=== PATIENT | female | born 1935 | race Caucasian/White ===

== ENCOUNTER 2017-02-22 06:45 | Observation (INO) | payer MEDICARE, BC ==
[2017-02-22] VITALS (15 sets, daily range): BP systolic 89–121; BP diastolic 42–56; PULSE 59–81; RESP 14–58; TEMP 98.7–100; O2SAT 91–99
[~2017-02-22 06:45] MED LIST: ACET325 PO; ALBU2.5I INH; ALPR-138 PO; ALPR0.25 PO; ASPI81TA82 PO; BISA10R PR; BUME1TAB PO; CYCL-36 PO; Cyclobenzaprine Hcl PO; DOCU1CAP39 PO; ENOX40P SQ; HYDR-3535 PO; HYDR10SO PO; LEVO.025 PO; LOVA1TAB47 PO; MAGN30S PO; METO50CR PO; PROT40TA PO; SYNT25TA PO; TAB-TAB PO; ZOVI400T15 PO; [UNRECOGNIZED DRUG - CODE] IV
--- NOTE | 2017-02-22 07:05 | PD ---
HPI Chief Complaint: Respiratory Distress Time Seen by Provider: 07:05 Travel History International Travel<30 days: No Contact w/Intl Traveler<30days: No Traveled to known affect area: No History of Present Illness HPI 81-year-old female came to the emergency room with history of shortness of breath sent from the retirement. Patient has history of recent femur fracture but because of her DNR status and no surgery is planned. She is wearing a knee immobilizer on her left leg. As per the report from the paramedics patient received some narcotic and soon after started getting lethargic and short of breath. Her oxygen saturation was in the high 80s to low 90s on nasal cannula. However when I called her name patient open her eyes and answer my questions. She denies of any pain anywhere. However she does seem to be little lethargic and is not a reliable historian currently. History is limited at this point since not much information is sent from the retirement. Heart rate and blood pressure were within acceptable limits. [facility] Past Medical History Narrative Medical List of her past medical, surgical, social and family history was reviewed from the nursing note Arthritis: Yes Depression: Yes Cancer: No Cardiovascular Problems: No High Cholesterol: Yes Diabetes: No Diminished Hearing: No Endocrine: No Genitourinary: Yes (URINARY FREQUENCY ) Hepatitis: No Hiatal Hernia: No Hypertension: Yes Immune Disorder: No Musculoskeletal: Yes (ARTHRITIS BACK ) Neurologic: Yes (PAIN RIGHT LEG (INTERMITTENT)) Psychiatric: No Respiratory: No Shingles: Yes (HERPES SYNDROME) Thyroid Disease: No Menopausal: Yes Past Surgical History Abdominal Surgery: No AICD: No Body Medical Devices: HARDWARE RIGHT SHOULDER, ? RIGHT FOOT FROM BUNIONECTOMY Cardiac Surgery: No Genitourinary Surgery: No Gynecologic Surgery: No Joint Replacement: No Pacemaker: No Thoracic Surgery: No Social History Alcohol Use: Yes (WINE DAILY) Tobacco Use: No (QUIT 1996) Substance Use: No Allergies-Medications (Allergen,Severity, Reaction): Coded Allergies: No Known Allergies (Verified , 11/11/14) Comments List of her allergies reviewed from the nursing note. Reported Meds & Prescriptions Reported Meds & Active Scripts Active Reported Potassium Chloride ER (Potassium Chloride) 10 Meq Cap 10 Meq PO DAILY PRN Zofran (Ondansetron HCl) 4 Mg Tab 4 Mg PO Q8HR PRN [place] (Hydrocodone-Acetaminophen) 5-325 mg Tab 1-2 Tab PO Q6H PRN Bumetanide 1 Mg Tab 1 Mg PO DAILY PRN Melatonin Cr (Melatonin) 3 Mg Tab 3 Mg PO HS Eliquis (Apixaban) 5 Mg Tab 5 Mg PO BID Metoprolol Succinate ER 24 HR (Metoprolol Succinate) 25 Mg Tab 25 Mg PO DAILY Magnesium Gluconate 500 Mg Tab 500 Mg PO DAILY Lovastatin 20 Mg Tab 20 Mg PO DAILY Levothyroxine (Levothyroxine Sodium) 25 Mcg Tab 25 Mcg PO DAILY Escitalopram (Escitalopram Oxalate) 5 Mg Tab 5 Mg PO DAILY Narrative Medication List of her home medications reviewed from the nursing note. Review of Systems Except as stated in HPI: all other systems reviewed are Neg Physical Exam Narrative GENERAL: Lethargic, elderly, frail, moderate distress SKIN: Focused skin assessment warm/dry. HEAD: Atraumatic. Normocephalic. EYES: Pupils equal and round. No scleral icterus. No injection or drainage. ENT: No nasal bleeding or discharge. Mucous membranes pink and moist. NECK: Trachea midline. No JVD. CARDIOVASCULAR: Regular rate and rhythm. No murmur appreciated. RESPIRATORY: No accessory muscle use. Shallow respirations. Clear to auscultation. Breath sounds equal bilaterally. GASTROINTESTINAL: Abdomen soft, non-tender, nondistended. Hepatic and splenic margins not palpable. MUSCULOSKELETAL: Knee immobilizer on the left leg. No clubbing. No cyanosis. Bilateral pedal edema. NEUROLOGICAL: Awake and alert. No obvious cranial nerve deficits. Motor grossly within normal limits. Normal speech. PSYCHIATRIC: Appropriate mood and affect; insight and judgment normal. Data Data Last Documented VS Vital Signs Date Time Temp Pulse Resp B/P Pulse Ox O2 Delivery O2 Flow Rate FiO2 02/22/17 08:07 70 14 114/56 99 Venturi Mask 50 02/22/17 07:30 100.0 02/22/17 06:55 4 Orders Complete Blood Count With Diff (02/22/17 07:11) Comprehensive Metabolic Panel (02/22/17 07:11) Urinalysis - C+S If Indicated (02/22/17 07:11) Blood Culture (02/22/17 07:11) Iv Access Insert/Monitor (02/22/17 07:11) Electrocardiogram (02/22/17 07:11) Ecg Monitoring (02/22/17 07:11) Oximetry (02/22/17 07:11) Oxygen Administration (02/22/17 07:11) Chest, Single Ap (02/22/17 07:11) Sodium Chloride 0.9% Flush (Ns Flush) (02/22/17 07:15) Ceftriaxone Inj (Rocephin Inj) (02/22/17 08:45) Azithromycin Inj (Zithromax Inj) (02/22/17 08:45) Furosemide Inj (Lasix Inj) (02/22/17 08:45) Admit Order (Ed Use Only) (02/22/17 08:49) Labs Laboratory Tests Test 02/22/17 07:35 White Blood Count 6.0 TH/MM3 Red Blood Count 4.00 MIL/MM3 Hemoglobin 11.5 GM/DL Hematocrit 35.7 % Mean Corpuscular Volume 89.2 FL Mean Corpuscular Hemoglobin 28.7 PG Mean Corpuscular Hemoglobin 32.2 % Concent Red Cell Distribution Width 15.4 % Platelet Count 277 TH/MM3 Mean Platelet Volume 7.3 FL Neutrophils (%) (Auto) 67.8 % Lymphocytes (%) (Auto) 18.0 % Monocytes (%) (Auto) 12.7 % Eosinophils (%) (Auto) 0.9 % Basophils (%) (Auto) 0.6 % Neutrophils # (Auto) 4.0 TH/MM3 Lymphocytes # (Auto) 1.1 TH/MM3 Monocytes # (Auto) 0.8 TH/MM3 Eosinophils # (Auto) 0.1 TH/MM3 Basophils # (Auto) 0.0 TH/MM3 CBC Comment DIFF FINAL Differential Comment Sodium Level 137 MEQ/L Potassium Level 4.3 MEQ/L Chloride Level 93 MEQ/L Carbon Dioxide Level 37.7 MEQ/L Anion Gap 6 MEQ/L Blood Urea Nitrogen 16 MG/DL Creatinine 0.42 MG/DL Estimat Glomerular Filtration 144 ML/MIN Rate Random Glucose 98 MG/DL Calcium Level 8.7 MG/DL Total Bilirubin 0.7 MG/DL Aspartate Amino Transf 12 U/L (AST/SGOT) Alanine Aminotransferase 15 U/L (ALT/SGPT) Alkaline Phosphatase 167 U/L B-Type Natriuretic Peptide 269 PG/ML Total Protein 6.0 GM/DL Albumin 2.5 GM/DL MDM Medical Decision Making Medical Screen Exam Complete: Yes Emergency Medical Condition: Yes Medical Record Reviewed: Yes Interpretation(s) Twelve-lead EKG was reviewed by me. Atrial fibrillation, left axis deviation, poor R-wave progression. Heart rate of 68 bpm. Differential Diagnosis Pneumonia, congestive heart failure, PE, COPD exacerbation, sepsis Narrative Course 7:22 AM I have asked the nursing staff to get a rectal temperature. Patient is currently on oxygen via mask and saturating 97-98%. Awaiting for the x-ray and the blood test. Patient is a DNR and hence aggressive respiratory measures for instance intubation will not be performed. Awaiting for more information through the tests ordered. Patient is on Eliquis probably for her atrial fibrillation. 8:50 AM chest x-ray suggestive of bilateral pleural effusion with questionable pneumonia. Especially given her rectal temperature of 100 I have decided to cover her with antibiotic. She was given IV Rocephin and azithromycin. Her sister is here now and I had a discussion with her. I made her understand that currently I am not 100% sure what could be the reason for her hypoxia and respiratory distress. Could be a combination of narcotic and the fluid building up in the lungs. It could also be from underlying pneumonia for which I have covered her with antibiotics. I also gave her 40 mg of IV Lasix. Blood test results are back and appeared to be within acceptable limits. She thought it would be reasonable to give her a trial of antibiotic for 24 hours and see how her condition does. She explained that her sister definitely wanted her DNR status to be continued and hence no aggressive measures. I have conveyed this to the hospitalist. The patient is admitted. Procedures EKG Prior to Arrival: No Diagnosis Primary Impression: Hypoxia Additional Impressions: Respiratory distress Pneumonia Qualified Code: J18.9 - Pneumonia of both lower lobes due to infectious organism Altered mental status Qualified Code: R40.0 - Somnolence Admitting Information Admitting Physician Requests: Admit Scripts Alprazolam 0.5 Mg Tab0.5 Mg PO BID #6 TAB Ref 0 Prov:Roberto Mcmullen MD 02/23/17 Marina Light MD Feb 22, 2017 07:05
[2017-02-22] MEDS ORDERED: SODIUM CHLORIDE 0.9% FLUSH 10 ML FLUSH IVF PRN (07:15)
[2017-02-22 07:50] LABS: BASOPHIL % 0.6 % (0.0-2.0); EOSINOPHIL # 0.1 TH/MM3 (0-0.4); EOSINOPHIL % 0.9 % (0.0-4.0); HEMATOCRIT 35.7 % (35.0-46.0); HEMO FLAGS DIFF FINAL; LYMPHOCYTE # 1.1 TH/MM3 (1.0-4.8); MEAN CELL VOLUME 89.2 FL (80.0-100.0); MEAN CORPUSCULAR HEMOGLOBIN 28.7 PG (27.0-34.0); MEAN CORPUSCULAR HGB CONC 32.2 % (32.0-36.0); MONO % 12.7 % (0.0-8.0); NEUT % 67.8 % (16.0-70.0); PLATELET COUNT 277 TH/MM3 (150-450); RED CELL DISTRIBUTION WIDTH 15.4 % (11.6-17.2)
[2017-02-22 07:58] LABS: CHLORIDE 93 MEQ/L (98-107); POTASSIUM 4.3 MEQ/L (3.5-5.1); SODIUM (NA) 137 MEQ/L (136-145)
--- NOTE | 2017-02-22 08:01 | RADHPO ---
EXAM DATE/TIME: 02/22/2017 07:18 [place] COMPARISON: No previous studies available for comparison. INDICATIONS : Short of breath. MEDICAL HISTORY : Hypertension. Osteoarthritis. Arthritis. Sleep apnea. SURGICAL HISTORY : Right rotator cuff. Right bunionectomy. Cataract extraction & lens implant. ENCOUNTER: Initial ACUITY: 1 day PAIN SCORE: 0/10 LOCATION: chest FINDINGS: The heart is mildly enlarged. Bibasilar patchiness is noted consistent with pulmonary vascular conge stion, atelectasis and/or infiltrates. Small bilateral pleural effusions are noted. Degenerative ch anges are noted throughout the thoracic spine. CONCLUSION: 1. Bibasilar patchiness consistent with pulmonary vascular congestion, atelectasis and/or mild infil trates. 2. Small bilateral pleural effusions. 3. Cardiomegaly. 4. Degenerative changes and scoliosis of the thoracolumbar spine. Dajuan Bess MD on February 22, 2017 at 7:30 Board Certified Radiologist. This report was verified electronically.
[2017-02-22 08:02] LABS: ANION GAP 6 MEQ/L (5-15); BICARBONATE 37.7 MEQ/L (21.0-32.0); BLOOD UREA NITROGEN 16 MG/DL (7-18)
[2017-02-22] MEDS ORDERED: ESCI5TAB PO (08:04)
[2017-02-22] MEDS ORDERED: POTA10CA PO (08:04)
[2017-02-22] MEDS ORDERED: NORC5TAB PO (08:04)
[2017-02-22] MEDS ORDERED: APIX5TAB PO (08:04)
[2017-02-22] MEDS ORDERED: METO25TA6 PO (08:04)
[2017-02-22] MEDS ORDERED: MAGN500T5 PO (08:04)
[2017-02-22] MEDS ORDERED: ALPR0.5T3 PO (08:04)
[2017-02-22] MEDS ORDERED: LOVA20TA PO (08:04)
[2017-02-22] MEDS ORDERED: BUME1TAB PO (08:04)
[2017-02-22] MEDS ORDERED: ZOFR4TAB PO (08:04)
[2017-02-22] MEDS ORDERED: LEVO25TA4 PO (08:04)
[2017-02-22] MEDS ORDERED: MELA3TAB23 PO (08:04)
[2017-02-22 08:05] LABS: ALT (GPT) 15 U/L (10-53); AST (GOT) 12 U/L (15-37)
[2017-02-22 08:06] LABS: GLOMERULAR FILTRATION RATE 144 ML/MIN (>89)
[2017-02-22 08:07] LABS: TOTAL BILIRUBIN ADULT 0.7 MG/DL (0.2-1.0)
[2017-02-22 08:08] LABS: ALKALINE PHOSPHATASE 167 U/L (45-117)
[2017-02-22] MEDS ORDERED: FUROSEMIDE 40 MG/4 ML VIAL IV PUSH ONE (08:45)
[2017-02-22] MEDS ORDERED: cefTRIAXone INJ 1,000 MG in SODIUM CHLORIDE 0.9% INJ 100 ML IV ONE (08:45)
[2017-02-22] MEDS ORDERED: AZITHROMYCIN INJ 500 MG in SODIUM CHLOR 0.9% 250 ML INJ 250 ML IV ONE (08:45)
[2017-02-22] MEDS: METOPROLOL SUCCINATE 25 MG EXTENDED RELEASE TAB PO SCH (09:00)
[2017-02-22] MEDS ORDERED: RESP: ALBUTEROL 2.5 MG/IPRATROPIUM 0.5 MG NEB (PRN) INH (09:00)
[2017-02-22] MEDS ORDERED: ACETAMINOPHEN/HYDROcodone 325 MG/5 MG TAB PO PRN (09:00)
[2017-02-22] MEDS ORDERED: NALOXONE HCL 0.4 MG/ML AMP IV PUSH PRN (09:00)
[2017-02-22] MEDS ORDERED: ONDANSETRON HCL 4 MG/2 ML VIAL IV PRN (09:00)
[2017-02-22] MEDS ORDERED: ALUMINUM/MAGNESIUM/SIMETH 30 ML CUP PO PRN (09:00)
[2017-02-22] MEDS ORDERED: ACETAMINOPHEN 325 MG TAB PO PRN (09:00)
[2017-02-22] MEDS ORDERED: CALCIUM CARBONATE 500 MG CHEWABLE TAB CHEW PRN (09:00)
[2017-02-22] MEDS ORDERED: SODIUM CHLORIDE 0.9% FLUSH 10 ML FLUSH IV FLUSH PRN (09:00)
[2017-02-22] MEDS ORDERED: DOCUSATE SODIUM 100 MG CAP PO PRN (09:00)
[2017-02-22] MEDS ORDERED: ALPRAZolam 0.5 MG TAB PO PRN (09:00)
[2017-02-22] MEDS ORDERED: MAGNESIUM HYDROXIDE SUSP 30 ML CUP PO PRN (09:00)
[2017-02-22 09:07] LABS: BLOOD GAS BASE EXCESS 11.7 mmol/L (-2-2); BLOOD GAS CARBOXYHEMOGLOBIN 2.6 % (0-4); BLOOD GAS HCO3 39 mmol/L (22-26); BLOOD GAS METHEMOGLOBIN 1.1 % (0-2); BLOOD GAS O2 HGB SATURATION 95 % (90-100); BLOOD GAS OXYGEN CONTENT 14.4 Vol % (12.0-20.0); BLOOD GAS PCO2 86 mmHG (38-42); BLOOD GAS PO2 128 mmHG (61-120); BLOOD GAS TOTAL HGB 10.6 G/DL (12.0-16.0); TEMP CORR TO 98.6
[2017-02-22 09:08] LABS: CRITICAL VALUE YES
[2017-02-22 09:09] LABS: DRAW SITE RT RADIAL; FIO2 50 %; NUMBER OF ARTERIAL PUNCTURES 1; OXYGEN DEVICE Venti Mask; STAT NO; ULNAR PULSE PRESENT
[2017-02-22] MEDS: APIXABAN 5 MG TABLET PO SCH ×2 (10:51→21:35)
[2017-02-22] MEDS: LEVOTHYROXINE SODIUM 25 MCG TAB PO SCH (10:52)
[2017-02-22] MEDS: PRAVASTATIN SOD 20 MG TAB PO SCH (10:52)
[2017-02-22] MEDS: SODIUM CHLORIDE 0.9% FLUSH 10 ML FLUSH IV FLUSH SCH ×2 (10:53→21:35)
[2017-02-22] MEDS: PIPERACIL-TAZO 4.5 GM PREMIX 100 ML IV SCH ×2 (11:32→22:54)
[2017-02-22 13:46] LABS: BLOOD, URINE TRACE (NEG); GLUCOSE,URINE NEG (NEG); KETONE, URINE NEG (NEG); NITRITE,URINE NEG (NEG)
[2017-02-22 13:50] LABS: METHOD OF COLLECTION CLEAN CATCH; URINE COLOR YELLOW (YELLW/STRAW); WBC, URINE 0-2 /hpf (0-5)
[2017-02-22 13:51] LABS: COMMENT (UR) CULT NOT INDICATED; CULTURE IF INDICATED CULT NOT INDICATED; RBC, URINE 0-3 /hpf (0-3)
--- NOTE | 2017-02-22 16:46 | HHI.HP ---
[facility] Rosalinda Do MD Admission Diagnosis respiratory distress, hypoxia, pneumonia Diagnoses: Chief Complaint: Shortness of breath Travel History International Travel<30 Days: No Contact w/Intl Traveler <30 Da: No Traveled to Known Affected Are: No History of Present Illness This is a 81-year-old female who [facility] because of shortness of breath sent from the long term facility where she was receiving rehabilitation for recent femur fracture. As per the report from the paramedics patient received some narcotic and soon after started getting lethargic and short of breath. Her oxygen saturation was in the high 80s to low 90s on nasal cannula. Discussed with ER physician patient had abnormal chest x-ray with bilateral patchiness and patient was given Rocephin, Zithromax and Lasix. ABG shows Respiratory acidosis with hypoxia and was placed on BiPAP. When I saw the patient on the floor, patient tolerating four liter nasal cannula. She is awake and oriented. She reports of dyspnea on exertion, orthopnea, leg swelling and weight gain. Denies history of heart failure. BNP is elevated. Denies fever, chills, cough and wheezing. Review of Systems Constitutional: DENIES: Diaphoretic episodes, Fatigue, Fever, Weight gain, Weight loss, Chills, Dizziness, Change in appetite, Night Sweats Endocrine: DENIES: Heat/cold intolerance, Polydipsia, Polyuria, Polyphagia Eyes: DENIES: Blurred vision, Diplopia, Vision loss, Photosensitivity Ears, nose, mouth, throat: DENIES: Tinnitus, Vertigo, Throat pain, Hoarseness, Epistaxis, Odynophagia Respiratory: COMPLAINS OF: Shortness of breath, DENIES: Cough, Wheezing, Hemoptysis, Sputum production Cardiovascular: COMPLAINS OF: Dyspnea on Exertion, Lower Extremity Edema, Orthopnea, DENIES: Chest pain, Palpitations, Syncope, PND, Claudication Gastrointestinal: DENIES: Abdominal pain, Black stools, Bloody stools, Constipation, Diarrhea, Nausea, Vomiting, Difficulty Swallowing, Anorexia Genitourinary: DENIES: Urinary frequency, Urinary incontinence, Urgency, Hematuria, Dysuria, Nocturia, Vaginal discharge Integumentary: DENIES: Rash Neurologic: DENIES: Headache, Localized weakness, Seizures, Tremor, Poor Balance Psychiatric: COMPLAINS OF: Confusion, DENIES: Anxiety, Depression, Hallucinations, Agitation, Suicidal Ideation, Homicidal Ideation, Delusions Past Family Social History Past Medical History Arthritis, depression, hyperlipidemia, A. fib hypertension, and hypothyroidism Past Surgical History Orthopedic surgery Reported Medications Zofran (Ondansetron HCl) 4 Mg Tab 4 Mg PO Q8HR PRN [place] (Hydrocodone-Acetaminophen) 5-325 mg Tab 1-2 Tab PO Q6H PRN Bumetanide 1 Mg Tab 1 Mg PO DAILY PRN Melatonin Cr (Melatonin) 3 Mg Tab 3 Mg PO HS Eliquis (Apixaban) 5 Mg Tab 5 Mg PO BID Alprazolam 0.5 Mg Tab 0.5 Mg PO BID Metoprolol Succinate ER 24 HR (Metoprolol Succinate) 25 Mg Tab 25 Mg PO DAILY Magnesium Gluconate 500 Mg Tab 500 Mg PO DAILY Lovastatin 20 Mg Tab 20 Mg PO DAILY Levothyroxine (Levothyroxine Sodium) 25 Mcg Tab 25 Mcg PO DAILY Escitalopram (Escitalopram Oxalate) 5 Mg Tab 5 Mg PO DAILY Allergies: Coded Allergies: No Known Allergies (Verified , 11/11/14) Family History Heart failure Social History She has not had alcohol since hospitalized. Quit tobacco in 1996 Physical Exam Vital Signs Vital Signs Date Time Temp Pulse Resp B/P Pulse Ox O2 Delivery O2 Flow Rate FiO2 02/22/17 15:00 70 26 98/53 92 02/22/17 14:00 66 49 121/56 92 02/22/17 13:07 98.7 68 58 97/55 97 02/22/17 13:05 70 51 92/42 93 02/22/17 13:00 79 15 109/55 99 Nasal Cannula 4 02/22/17 11:55 95 Nasal Cannula 4.00 02/22/17 10:50 69 15 89/54 99 BiPAP 02/22/17 09:30 96 35 02/22/17 08:07 70 14 114/56 99 Venturi Mask 50 02/22/17 07:30 100.0 02/22/17 07:00 14 99 Venturi Mask 02/22/17 07:00 99 Venturi Mask 50 02/22/17 06:55 71 14 92 Nasal Cannula 4 02/22/17 06:53 81 20 119/55 91 Physical Exam GENERAL: This is a well-nourished, well-developed patient, in no apparent distress on 4 L nasal cannula. SKIN: No rashes, ecchymoses or lesions. Cool and dry. HEAD: Atraumatic. Normocephalic. No temporal or scalp tenderness. EYES: Pupils equal round and reactive. Extraocular motions intact. No scleral icterus. No injection or drainage. ENT: Nose without bleeding, purulent drainage or septal hematoma. Throat without erythema, tonsillar hypertrophy or exudate. Uvula midline. Airway patent. NECK: Trachea midline. No JVD or lymphadenopathy. Supple, nontender, no meningeal signs. CARDIOVASCULAR: Irregularly irregular RESPIRATORY: Decreased Breath sounds equal bilaterally. No wheezes, rales, or rhonchi. GASTROINTESTINAL: Abdomen soft, non-tender, nondistended No guarding. MUSCULOSKELETAL: Extremities without clubbing, cyanosis with bilateral pedal edema. No joint tenderness, effusion, or edema noted. No calf tenderness. Negative Homans sign bilaterally. NEUROLOGICAL: Awake and alert. Cranial nerves II through XII intact. Motor and sensory grossly within normal limits. Five out of 5 muscle strength in all muscle groups. Normal speech. Laboratory Laboratory Tests Test 02/22/17 02/22/17 02/22/17 07:35 09:00 13:30 White Blood Count 6.0 Red Blood Count 4.00 Hemoglobin 11.5 Hematocrit 35.7 Mean Corpuscular Volume 89.2 Mean Corpuscular Hemoglobin 28.7 Mean Corpuscular Hemoglobin 32.2 Concent Red Cell Distribution Width 15.4 Platelet Count 277 Mean Platelet Volume 7.3 Neutrophils (%) (Auto) 67.8 Lymphocytes (%) (Auto) 18.0 Monocytes (%) (Auto) 12.7 Eosinophils (%) (Auto) 0.9 Basophils (%) (Auto) 0.6 Neutrophils # (Auto) 4.0 Lymphocytes # (Auto) 1.1 Monocytes # (Auto) 0.8 Eosinophils # (Auto) 0.1 Basophils # (Auto) 0.0 CBC Comment DIFF FINAL Differential Comment Sodium Level 137 Potassium Level 4.3 Chloride Level 93 Carbon Dioxide Level 37.7 Anion Gap 6 Blood Urea Nitrogen 16 Creatinine 0.42 Estimat Glomerular Filtration 144 Rate Random Glucose 98 Calcium Level 8.7 Total Bilirubin 0.7 Aspartate Amino Transf 12 (AST/SGOT) Alanine Aminotransferase 15 (ALT/SGPT) Alkaline Phosphatase 167 B-Type Natriuretic Peptide 269 Total Protein 6.0 Albumin 2.5 Blood Gas Puncture Site RT RADIAL Blood Gas Patient Temperature 98.6 Blood Gas HCO3 39 Blood Gas Base Excess 11.7 Blood Gas Oxygen Saturation 95 Arterial Blood pH 7.28 Arterial Blood Partial 86 Pressure CO2 Arterial Blood Partial 128 Pressure O2 Arterial Blood Oxygen Content 14.4 Arterial Blood 2.6 Carboxyhemoglobin Arterial Blood Methemoglobin 1.1 Blood Gas Hemoglobin 10.6 Oxygen Delivery Device Venti Mask Blood Gas Inspired Oxygen 50 Urine Collection Type CLEAN CATCH Urine Color YELLOW Urine Turbidity CLEAR Urine pH 5.0 Urine Specific [place] 1.012 Urine Protein NEG Urine Glucose (UA) NEG Urine Ketones NEG Urine Occult Blood TRACE Urine Nitrite NEG Urine Bilirubin NEG Urine Leukocyte Esterase TRACE Urine RBC 0-3 Urine WBC 0-2 Microscopic Urinalysis Comment CULT NOT INDICATED Date/Time Procedure Status Source Growth 02/22/17 13:30 Legionella Antigen Received Urine Random Urine Pending 02/22/17 13:30 Streptococcus pneumoniae Antigen (M Received Urine Random Urine Pending 02/22/17 07:40 Aerobic Blood Culture Received Blood Peripheral Pending 02/22/17 07:40 Anaerobic Blood Culture Received Blood Peripheral Pending Result Diagram: 02/22/1735 02/22/1735 Imaging EKG tracing interpreted by me with atrial fibrillation with controlled ventricular response Chest x-ray image interpreted by me. Bilateral patchiness and pleural effusions Last Impressions Chest X-Ray 02/22/17 0711 Signed Impressions: Service Date/Time: Wednesday, February 22, 2017 07:18 - CONCLUSION: 1. Bibasilar patchiness consistent with pulmonary vascular congestion, atelectasis and/or mild infiltrates. 2. Small bilateral pleural effusions. 3. Cardiomegaly. 4. Degenerative changes and scoliosis of the thoracolumbar spine. Dajuan Bess MD Assessment and Plan Problem List: (1) Altered mental status ICD Code: R41.82 Status: Acute (2) Hypoxia ICD Code: R09.02 Status: Acute Assessment and Plan 81-year-old female who was [facility] from the [facility] because of altered mental status and shortness of breath after receiving narcotic. Chest x-ray with bibasilar patchiness with elevated BNP. Patient also complaining of this on exertion, orthopnea, leg swelling and weight gain Toxic encephalopathy. This is currently improved. Neurochecks Acute hypoxic hypercarbic respiratory failure. This is also improved status post BiPAP. Cautious use of narcotics and benzodiazepines. Oxygen as needed to keep saturation at least 92% New onset congestive heart failure doubt pneumonia. Patient received IV Lasix will continue. Obtain echocardiogram. Discontinue IV antibiotics Chronic medical conditions of Arthritis, depression, hyperlipidemia, A. fib hypertension, and hypothyroidism. Stable continue outpatient medications as appropriate DVT prophylaxis on Eliquis Code Status DO NOT RESUSCITATE Discussed Condition With Patient. If she continues to improve patient will be downgraded to a regular floor and discharge back to SNF Problem Qualifiers (1) Altered mental status: Qualified Code: R40.0 - Somnolence Roberto Mcmullen MD Feb 22, 2017 16:46
[2017-02-22] MEDS ORDERED: MELATONIN 3 MG PO SCH (21:00)
--- NOTE | 2017-02-22 22:09 | EKG ---
Date Performed: 02/22/2017 Time Performed: 07:21:06 PTAGE: 81 years EKG: Atrial fibrillation Leftward axis Septal T wave changes are nonspecific, cannot rule out is chemia Abnormal ECG PREVIOUS TRACING : 05/30/2011 08.49 Compared to prior tracing no significant change DOCTOR: Kirill Miner Interpretating Date/Time 02/22/2017 22:09:08
[2017-02-23] VITALS (12 sets, daily range): BP systolic 102–125; BP diastolic 51–60; PULSE 59–86; RESP 23–58; TEMP 97.6–98.3; O2SAT 95–98
[2017-02-23] MEDS: PIPERACIL-TAZO 4.5 GM PREMIX 100 ML IV SCH (04:33)
[2017-02-23 04:44] LABS: POTASSIUM 3.9 MEQ/L (3.5-5.1)
[2017-02-23] MEDS: LEVOTHYROXINE SODIUM 25 MCG TAB PO SCH (06:33)
--- NOTE | 2017-02-23 09:44 | HHI.PR ---
Subjective Remarks Follow-up acute respiratory failure, hypoxic encephalopathy and heart failure. She is feeling much better denies shortness of breath tolerating nasal cannula denies o'clock BiPAP overnight. Seen with sister who requests narcotic to be discontinued. Patient developed altered mental status after receiving [place]. She is post op femur surgery a month ago. Discussed with RN and case hardener, she can be discharged back to SNF if echocardiogram unremarkable Objective Vitals Vital Signs Date Time Temp Pulse Resp B/P Pulse Ox O2 Delivery O2 Flow Rate FiO2 02/23/17 02:10 95 35 02/23/17 00:02 98.3 72 58 110/56 98 02/23/17 00:00 02/22/17 22:00 59 02/22/17 20:02 98.7 72 45 103/48 95 02/22/17 19:55 95 Nasal Cannula 4.00 02/22/17 15:00 70 26 98/53 92 02/22/17 14:00 66 49 121/56 92 02/22/17 13:07 98.7 68 58 97/55 97 02/22/17 13:05 70 51 92/42 93 02/22/17 13:00 79 15 109/55 99 Nasal Cannula 4 02/22/17 11:55 95 Nasal Cannula 4.00 02/22/17 10:50 69 15 89/54 99 BiPAP I/O 02/22/17 02/22/17 02/22/17 02/23/17 02/23/17 02/23/17 07:00 15:00 23:00 07:00 15:00 23:00 Intake Total 300 ml 250 ml Balance 300 ml 250 ml Intake Oral 300 ml 250 ml # Voids 1 3 3 Result Diagram: 02/22/17 0735 02/23/17 0428 Imaging Last Impressions Chest X-Ray 02/22/17 0711 Signed Impressions: Service Date/Time: Wednesday, February 22, 2017 07:18 - CONCLUSION: 1. Bibasilar patchiness consistent with pulmonary vascular congestion, atelectasis and/or mild infiltrates. 2. Small bilateral pleural effusions. 3. Cardiomegaly. 4. Degenerative changes and scoliosis of the thoracolumbar spine. Dajuan Bess MD Objective Remarks GENERAL: This is a well-nourished, well-developed patient, in no apparent distress on 4 L nasal cannula. SKIN: No rashes, ecchymoses or lesions. Cool and dry. HEAD: Atraumatic. Normocephalic. No temporal or scalp tenderness. EYES: Pupils equal round and reactive. Extraocular motions intact. No scleral icterus. No injection or drainage. ENT: Nose without bleeding, purulent drainage or septal hematoma. Throat without erythema, tonsillar hypertrophy or exudate. Uvula midline. Airway patent. NECK: Trachea midline. No JVD or lymphadenopathy. Supple, nontender, no meningeal signs. CARDIOVASCULAR: Irregularly irregular RESPIRATORY: Decreased Breath sounds equal bilaterally. No wheezes, rales, or rhonchi. GASTROINTESTINAL: Abdomen soft, non-tender, nondistended No guarding. MUSCULOSKELETAL: Extremities without clubbing, cyanosis with bilateral pedal edema. No joint tenderness, effusion, or edema noted. No calf tenderness. Negative Homans sign bilaterally. Nonfocal. CKS left lower extremity NEUROLOGICAL: Awake and alert. Cranial nerves II through XII intact. Motor and sensory grossly within normal limits. Five out of 5 muscle strength in all muscle groups. Normal speech. Procedures none A/P Problem List: (1) Altered mental status ICD Code: R41.82 Status: Resolved (2) Hypoxia ICD Code: R09.02 Status: Acute Assessment and Plan 81-year-old female who was brought in from the group home because of altered mental status and shortness of breath after receiving narcotic. Chest x-ray with bibasilar patchiness with elevated BNP. Patient also complaining of this on exertion, orthopnea, leg swelling and weight gain Toxic encephalopathy. Resolved. Discussed with patient and sister, will discontinue narcotics. Neurochecks Acute hypoxic hypercarbic respiratory failure. This is also improved status post BiPAP. Cautious use of narcotics and benzodiazepines. Wean and discontinue Oxygen as needed to keep saturation at least 92% New onset congestive heart failure doubt pneumonia. Patient received IV Lasix. Improving but has alkalosis will give Diamox 250 mg IV 1 and repeat BMP and mag in the morning. Obtain echocardiogram. Discontinue IV antibiotics Chronic medical conditions of Arthritis, depression, hyperlipidemia, A. fib hypertension, and hypothyroidism. Stable continue outpatient medications as appropriate DVT prophylaxis on Eliquis Discharge Planning Discharge patient to SNF if ECHO unremarkable Condition on discharge: Improved Regular Diet as tolerated Ad Erica activity no driving Rx written: Bumex and Xanax Follow-up with primary care physician in 1week. [facility] 02/27 Spent over 30 mins arranging discharge dw sister, RN and CM . [id number] completed Problem Qualifiers (1) Altered mental status: Qualified Code: R40.0 - Somnolence Roberto Mcmullen MD Feb 23, 2017 09:44
[2017-02-23] MEDS ORDERED: ALPR0.5T3 PO (12:08)
[2017-02-23] MEDS ORDERED: BUME1TAB PO (12:08)
--- NOTE | 2017-02-23 12:08 | HHI.DCPOC ---
Discharge Care Plan Diagnosis: (1) Hypoxia (2) Altered mental status Your Health Problems Are: Difficulty with ADL Exercise Tolerance Goals to Promote Your Health * To prevent worsening of your condition and complications * To maintain your health at the optimal level Directions to Meet Your Goals Take your medications as prescribed Follow your dietary instruction Follow activity as directed Keep your appointments as scheduled Take your immunizations and boosters as scheduled If your symptoms worsen call your PCP, if no PCP go to Urgent Care Center or Emergency Room Smoking is Dangerous to Your Health. Avoid second hand smoke Call the 24-hour hour crisis hotline for domestic abuse at Roberto Mcmullen MD Feb 23, 2017 12:08
[2017-02-23] MEDS: SODIUM CHLORIDE 0.9% FLUSH 10 ML FLUSH IV FLUSH SCH (12:37)
[2017-02-23] MEDS: METOPROLOL SUCCINATE 25 MG EXTENDED RELEASE TAB PO SCH (12:38)
[2017-02-23] MEDS: PRAVASTATIN SOD 20 MG TAB PO SCH (12:38)
[2017-02-23] MEDS: APIXABAN 5 MG TABLET PO SCH (12:38)
--- NOTE | 2017-02-23 16:34 | EC ---
Study Study Date:02/23/2017 STUDY CONCLUSIONS SUMMARY - Left ventricle: The cavity size was normal. Wall thickness was normal. Systolic function was normal. The estimated ejection fraction was in the range of 55% to 60%. Wall motion was normal; there were no regional wall motion abnormalities. - Aortic valve: Valve area: 2.08cm^2 (Vmax). - Tricuspid valve: Mild regurgitation. - Pericardium, extracardiac: There was a left pleural effusion. If LV function is below 40, please consider prescribing an ACEI or ARB or document rationale for non-use. PROCEDURE DATA STUDY STATUS: Elective. Procedure: Transthoracic echocardiography. Image quality was good. Scanning was performed from the parasternal, apical, and subcostal acoustic windows. Study completion: The patient tolerated the procedure well. Transthoracic echocardiography. M-mode, complete 2D, complete spectral Doppler, and color Doppler. Height: Height: 65in. Weight: Weight: 113.8lb. Body mass index: BMI: 19kg/m^2. Body surface area: BSA: 1.56m^2. Patient status: Inpatient. CARDIAC ANATOMY LEFT VENTRICLE: The cavity size was normal. Wall thickness was normal. Systolic function was normal. The estimated ejection fraction was in the range of 55% to 60%. Wall motion was normal; there were no regional wall motion abnormalities. AORTIC VALVE: Trileaflet; normal thickness leaflets. Doppler: Transvalvular velocity was within the normal range. There was no stenosis. No regurgitation. Valve area: 2.08cm^2 (Vmax). Indexed valve area: 1.33cm^2/m^2 (Vmax). AORTA: Aortic root: The aortic root was normal in size. MITRAL VALVE: Moderately thickened leaflets, . Doppler: Transvalvular velocity was within the normal range. There was no evidence for stenosis. No regurgitation. LEFT ATRIUM: The atrium was normal in size. RIGHT VENTRICLE: The cavity size was normal. Wall thickness was normal. PULMONIC VALVE: Doppler: Transvalvular velocity was within the normal range. There was no evidence for stenosis. No regurgitation. TRICUSPID VALVE: Structurally normal valve. Doppler: Transvalvular velocity was within the normal range. Mild regurgitation. Peak gradient: 39mm Hg (D). PULMONARY ARTERY: The main pulmonary artery was normal-sized. Systolic pressure was within the normal range. RIGHT ATRIUM: The atrium was normal in size. PERICARDIUM: There was no pericardial effusion. SYSTEMIC VEINS: Inferior vena cava: The vessel was normal in size. Pleura: There was a left pleural effusion. Patient weight: 113.8lb _Ejection fraction:_ 65-75% _Fractional shortening:_ 32% up to 5Kg 5-11.5Kg 11.6-22.9Kg 23-45Kg 45-57Kg Aortic Root 7-13 <17 13-22 17-27 17-27 LA diam 6-13 <23 24-38 33-47 37-40 RVID 10-17 7-15 7-15 7-18 8-17 LVIDd 12-22 <32 24-38 33-47 37-40 LVPW 2-4 3-6 5-7 6-8 7-8 IVS 2-4 3-6 5-7 6-8 7-8 BASIC MEASUREMENTS ADULT NORMAL Left ventricle LV internal dimension, ED, chordal *39.4 mm 43-52 level, PLAX LV internal dimension, ES, chordal 23.1 mm 23-38 level, PLAX Fractional shortening, chordal level, 41 % >29 PLAX LV posterior wall thickness, ED 11.1 mm IVS/LVPW ratio, ED 1.05 <1.3 Ventricular septum Septal thickness, ED 11.7 mm Aortic valve Leaflet separation 21 mm 15-26 Left atrium Anterior-posterior dimension 40 mm Anterior-posterior dimension index *2.56 cm/m^2 <2.2 Right ventricle RV internal dimension, ED, PLAX 22.3 mm 19-38 BASIC MEASUREMENTS ADULT NORMAL Aortic valve Leaflet separation 21 mm 15-26 Aorta Root diameter, ED 26 mm 20-37 Left atrium Anterior-posterior dimension, ES *46 mm 19-40 Anterior-posterior dimension index, ES *2.95 cm/m^2 <2.2 LA/aortic root ratio 1.77 DOPPLER MEASUREMENTS ADULT NORMAL Aortic valve Peak velocity, S 110 cm/s Valve area, Vmax 2.08 cm^2 Valve area index, Vmax 1.33 cm^2/m^2 Regurgitant velocity, ED 385 cm/s Regurgitant deceleration 2870 cm/s^2 Regurgitant pressure half-time 392 ms Regurgitant gradient, ED 59 mm Hg Tricuspid valve Peak gradient, D 39 mm Hg Maximal inflow velocity 311 cm/s Systemic veins Estimated CVP 10 mm Hg Pulmonic valve Peak velocity, S 66.4 cm/s LEGEND: Mean values are shown as u=mean value. Asterisk (*) ho values outside specified normal range. Prepared and signed by Malcom Mancilla [id number]
== END 2017-02-23 20:31 ==
LOC: PHED 06:45 → PHEDA 08:49 → PHICU 13:36
PROVIDERS: ADMIT Family Medicine; ATTEND Family Medicine
DX: J96.02 Acute respiratory failure with hypercapnia (principal); R41.82 Altered mental status, unspecified; J18.9 Pneumonia, unspecified organism; Z66 Do not resuscitate; M19.90 Unspecified osteoarthritis, unspecified site; E78.00 Pure hypercholesterolemia, unspecified; R35.0 Frequency of micturition; I50.9 Heart failure, unspecified; I11.0 Hypertensive heart disease with heart failure; Z79.01 Long term (current) use of anticoagulants; Z79.899 Other long term (current) drug therapy; E87.4 Mixed disorder of acid-base balance; Z87.891 Personal history of nicotine dependence; J98.11 Atelectasis; G92 Toxic encephalopathy; E03.9 Hypothyroidism, unspecified; J90 Pleural effusion, not elsewhere classified
CPT/HCPCS: 36600; 71010; 80048; 80053; 81001; 82805; 83735; 83880; 85025; 87040; 87449; 93005; 93306; 94002; 94003; 96374; 96375; 99285; G0378; J0456; J0696; J1120; J1940; J2543; J7050

== ENCOUNTER 2017-04-07 13:38 | Inpatient (IN) | payer MEDICARE, BC ==
[~2017-04-07 13:38] MED LIST changes: -ACET325 PO; -ALBU2.5I INH; -ALPR-138 PO; -ALPR0.25 PO; +ALPR0.5T3 PO; +APIX5TAB PO; -ASPI81TA82 PO; -BISA10R PR; -CYCL-36 PO; -Cyclobenzaprine Hcl PO; -DOCU1CAP39 PO; -ENOX40P SQ; +ESCI5TAB PO; -HYDR-3535 PO; -HYDR10SO PO; -LEVO.025 PO; +LEVO25TA4 PO; -LOVA1TAB47 PO; +LOVA20TA PO; -MAGN30S PO; +MAGN500T5 PO; +MELA3TAB23 PO; +METO25TA6 PO; -METO50CR PO; +NORC5TAB PO; +POTA10CA PO; -PROT40TA PO; -SYNT25TA PO; -TAB-TAB PO; +ZOFR4TAB PO; -ZOVI400T15 PO; -[UNRECOGNIZED DRUG - CODE] IV
[2017-04-07 13:39] VITALS: BP 103/51; PULSE 72; RESP 16; TEMP 97.7; O2SAT 96
--- NOTE | 2017-04-07 13:52 | PD ---
Physical Exam Time Seen by Provider: 13:50 Narrative 81 y[facility] She had an ultrasound in the R groin on 04/02 and the results reveal "probable hematoma surrounding an artery, possibly representing a thrombosed aneurysm. Angiography would be diagnostic as well as therapeutic." Sent here for further evaluation. Vital signs reviewed. Seen at triage desk. Awaiting bed placement. Data Data Last Documented VS Vital Signs Date Time Temp Pulse Resp B/P Pulse Ox O2 Delivery O2 Flow Rate FiO2 04/07/17 13:39 97.7 72 16 103/51 96 Room Air [facility] Medical Record Reviewed: Yes Supervised Visit with PABLO: No Socrates Soriano Apr 07, 2017 13:52
--- NOTE | 2017-04-07 15:06 | PD ---
HPI Chief Complaint: Lump, Cyst, Hernia Time Seen by Provider: 14:44 Travel History International Travel<30 days: No Contact w/Intl Traveler<30days: No History of Present Illness HPI 81 yo F WNWD complains of mass in R inguinal crease. She was sent for CTA for further characterization. 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 Patient denies pain. She is currently in a rehabilitation facility following a left femur injury. The mass in the right groin has been in the area for few days. PFSH Past Medical History Hx Anticoagulant Therapy: Yes Arthritis: Yes Anxiety: Yes Depression: Yes Heart Rhythm Problems: Yes (AFIB) Cancer: No Cardiovascular Problems: Yes High Cholesterol: Yes Diabetes: No Diminished Hearing: No Endocrine: No Genitourinary: Yes Hepatitis: No Hiatal Hernia: No Hypertension: Yes Immune Disorder: No Musculoskeletal: Yes (ARTHRITIS BACK ) Neurologic: No Psychiatric: No Reproductive: No Respiratory: Yes Immunizations Current: Yes Shingles: Yes (HERPES SYNDROME) Thyroid Disease: No Menopausal: Yes Past Surgical History Abdominal Surgery: No AICD: No Body Medical Devices: HARDWARE RIGHT SHOULDER, ? RIGHT FOOT FROM BUNIONECTOMY Cardiac Surgery: No Eye Surgery: Yes (cateracts bilat) Genitourinary Surgery: No Gynecologic Surgery: No Joint Replacement: No Pacemaker: No Thoracic Surgery: No Other Surgery: Yes Social History Alcohol Use: Yes Tobacco Use: No Substance Use: No Allergies-Medications (Allergen,Severity, Reaction): Coded Allergies: No Known Allergies (Verified , 11/11/14) Reported Meds & Prescriptions Reported Meds & Active Scripts Active Bumetanide 1 Mg Tab 1 Mg PO DAILY Alprazolam 0.5 Mg Tab 0.5 Mg PO BID Reported Zovirax (Acyclovir) 400 Mg Tab 400 Mg PO DAILY Omeprazole 20 Mg Tab 20 Mg PO DAILY Magnesium Oxide 500 Mg Tab 500 Mg PO DAILY Aspirin DR (Aspirin) 81 Mg Tabdr 81 Mg PO DAILY Potassium Chloride ER (Potassium Chloride) 10 Meq Cap 10 Meq PO DAILY PRN Zofran (Ondansetron HCl) 4 Mg Tab 4 Mg PO Q8HR PRN Melatonin Cr (Melatonin) 3 Mg Tab 3 Mg PO HS Eliquis (Apixaban) 5 Mg Tab 5 Mg PO BID Metoprolol Succinate ER 24 HR (Metoprolol Succinate) 25 Mg Tab 25 Mg PO DAILY Lovastatin 20 Mg Tab 20 Mg PO HS Levothyroxine (Levothyroxine Sodium) 25 Mcg Tab 25 Mcg PO DAILY Escitalopram (Escitalopram Oxalate) 5 Mg Tab 5 Mg PO DAILY Review of Systems Except as stated in HPI: all other systems reviewed are Neg Physical Exam Narrative GENERAL: 81-year-old female, pleasant, NAD, WNWD SKIN: Focused skin assessment warm/dry. HEAD: Atraumatic. Normocephalic. EYES: Pupils equal and round. No scleral icterus. No injection or drainage. ENT: No nasal bleeding or discharge. Mucous membranes pink and moist. NECK: Trachea midline. No JVD. CARDIOVASCULAR: Regular rate and rhythm. No murmur appreciated. RESPIRATORY: No accessory muscle use. Clear to auscultation. Breath sounds equal bilaterally. GASTROINTESTINAL: Abdomen soft, non-tender, nondistended. Hepatic and splenic margins not palpable. MUSCULOSKELETAL: 5cm R inguinal crease mass, non-tender, immobile, firm. 2+ DP bilaterally. NEUROLOGICAL: Awake and alert. No obvious cranial nerve deficits. Motor grossly within normal limits. Normal speech. PSYCHIATRIC: Appropriate mood and affect; insight and judgment normal. Data Data Last Documented VS Vital Signs Date Time Temp Pulse Resp B/P Pulse Ox O2 Delivery O2 Flow Rate FiO2 04/07/17 17:20 85 18 106/71 04/07/17 16:06 96 04/07/17 13:39 97.7 Room Air Orders Basic Metabolic Panel (Bmp) (04/07/17 14:54) Complete Blood Count With Diff (04/07/17 14:54) Prothrombin Time / Inr (Pt) (04/07/17 14:54) Act Partial Throm Time (Ptt) (04/07/17 14:54) Ecg Monitoring (04/07/17 14:54) Iv Access Insert/Monitor (04/07/17 14:54) Oximetry (04/07/17 14:54) Cta Pelvis W Iv Contrast W 3d (04/07/17 ) Iohexol 350 Inj (Omnipaque 350 Inj) (04/07/17 16:43) Admit Order (Ed Use Only) (04/07/17 18:37) Consult Vascular Surgery (04/07/17 ) Labs Laboratory Tests Test 04/07/17 15:05 White Blood Count 5.5 TH/MM3 Red Blood Count 4.13 MIL/MM3 Hemoglobin 11.6 GM/DL Hematocrit 35.4 % Mean Corpuscular Volume 85.8 FL Mean Corpuscular Hemoglobin 28.1 PG Mean Corpuscular Hemoglobin 32.7 % Concent Red Cell Distribution Width 14.4 % Platelet Count 226 TH/MM3 Mean Platelet Volume 8.2 FL Neutrophils (%) (Auto) 57.1 % Lymphocytes (%) (Auto) 30.3 % Monocytes (%) (Auto) 10.0 % Eosinophils (%) (Auto) 1.8 % Basophils (%) (Auto) 0.8 % Neutrophils # (Auto) 3.2 TH/MM3 Lymphocytes # (Auto) 1.7 TH/MM3 Monocytes # (Auto) 0.6 TH/MM3 Eosinophils # (Auto) 0.1 TH/MM3 Basophils # (Auto) 0.0 TH/MM3 CBC Comment DIFF FINAL Differential Comment Prothrombin Time 11.4 SEC Prothromb Time International 1.0 RATIO Ratio Activated Partial 29.9 SEC Thromboplast Time Sodium Level 137 MEQ/L Potassium Level 3.9 MEQ/L Chloride Level 93 MEQ/L Carbon Dioxide Level 40.4 MEQ/L Anion Gap 4 MEQ/L Blood Urea Nitrogen 19 MG/DL Creatinine 0.39 MG/DL Estimat Glomerular Filtration 157 ML/MIN Rate Random Glucose 106 MG/DL Calcium Level 9.0 MG/DL [facility] Medical Decision Making Medical Screen Exam Complete: Yes Emergency Medical Condition: Yes Medical Record Reviewed: Yes Differential Diagnosis Hernia, aneurysm, pseudoaneurysm, abscess Narrative Course CBC & BMP Diagram 04/07/17 15:05 INR 1.0 Last 24 hours Impressions Pelvis CTA 04/07/17 0000 Signed Impressions: Service Date/Time: Friday, April 07, 2017 16:43 - CONCLUSION: 1. 6 cm pseudoaneurysm involving the right groin felt to arise from the proximal superficial femoral artery. I would suggest a Doppler study of the right groin to confirm flow within the pseudoaneurysm as well as to confirm the vessel that this arises from. The left groin which is the side of the trauma is unremarkable. Nacho Hanley Jr., MD D/W Dr Duran for vascular surgery. D/W Dr Liz for [facility]. Diagnosis Primary Impression: Pseudoaneurysm Admitting Information Admitting Physician Requests: Admit Oliverio Miner MD Apr 07, 2017 15:06
[2017-04-07 15:28] LABS: AUTOMATED NEUTROPHIL # 3.2 TH/MM3 (1.8-7.7); BASOPHIL % 0.8 % (0.0-2.0); EOSINOPHIL # 0.1 TH/MM3 (0-0.4); EOSINOPHIL % 1.8 % (0.0-4.0); HEMATOCRIT 35.4 % (35.0-46.0); HEMO FLAGS DIFF FINAL; LYMPH % 30.3 % (9.0-44.0); LYMPHOCYTE # 1.7 TH/MM3 (1.0-4.8); MEAN CELL VOLUME 85.8 FL (80.0-100.0); MEAN CORPUSCULAR HEMOGLOBIN 28.1 PG (27.0-34.0); MEAN CORPUSCULAR HGB CONC 32.7 % (32.0-36.0); NEUT % 57.1 % (16.0-70.0); PLATELET COUNT 226 TH/MM3 (150-450); RED BLOOD COUNT 4.13 MIL/MM3 (4.00-5.30); RED CELL DISTRIBUTION WIDTH 14.4 % (11.6-17.2); WHITE BLOOD COUNT 5.5 TH/MM3 (4.0-11.0)
[2017-04-07 15:43] LABS: APTT (PATIENT) 29.9 SEC (24.3-30.1); PROTHROMBIN TIME - PATIENT 11.4 SEC (9.8-11.6)
[2017-04-07 16:03] LABS: BICARBONATE 40.4 MEQ/L (21.0-32.0); POTASSIUM 3.9 MEQ/L (3.5-5.1)
[2017-04-07 16:06] VITALS: O2SAT 96
[2017-04-07] MEDS ORDERED: ASPI81TA5 PO (16:06)
[2017-04-07] MEDS ORDERED: MAGN500T2 PO (16:23)
[2017-04-07] MEDS ORDERED: OMEP20TA PO (16:23)
[2017-04-07] MEDS ORDERED: ZOVI400T PO (16:25)
[2017-04-07] MEDS ORDERED: IOHEXOL 350 MG/ML 10 ML VIAL (for RAD DIAG) IV ONE (16:43)
[2017-04-07 17:20] VITALS: BP 106/71; PULSE 85; RESP 18
--- NOTE | 2017-04-07 18:24 | RADRPT ---
EXAM DATE/TIME: 04/07/2017 16:43 [place] COMPARISON: No previous studies available for comparison. INDICATIONS : Recent left femur fracture 6 days ago, evaluate for hematoma vs aneurysm. IV CONTRAST: 74 cc Omnipaque 350 (iohexol) IV RADIATION DOSE: 35.7 CTDIvol (mGy) MEDICAL HISTORY : Cardiovascular disease. Hypertension. SURGICAL HISTORY : None. ENCOUNTER: Initial ACUITY: 1 day PAIN SCALE: 2/10 LOCATION: Right pelvis TECHNIQUE: Volumetric scanning of the pelvis was performed. Using automated exposure control and adjustment of the mA and/or kV according to patient size, radiation dose was kept as low as reasonably achievable t o obtain optimal diagnostic quality images. FINDINGS: A 6.0 x 4.7 x 4.5 cm pseudoaneurysm is seen involving the right groin. I am not able to clearly ident lucía the originating vessel but presumably it relates to the proximal SFA. A thin rim of concentric m ural thrombus is noted. V. left inflow and visualized a low are unremarkable. Note is made of partial visualization of an intramedullary nilo and fracture within the left femur. Osteopenia noted. Unilate ral posterior fixation seen involving L4, L5, and S1. A degenerative lumbar spine observed. The visua lized abdominal viscera are unremarkable. CONCLUSION: 1. 6 cm pseudoaneurysm involving the right groin felt to arise from the proximal superficial femoral artery. I would suggest a Doppler study of the right groin to confirm flow within the pseudoaneurysm as well as to confirm the vessel that this arises from. The left groin which is the side of the traum a is unremarkable. Nacho Hanley Jr., MD on April 07, 2017 at 18:09 Board Certified Radiologist. This report was verified electronically.
--- NOTE | 2017-04-07 18:54 | PD.CAR.PN ---
CVT Progress Note Subjective/Hospital Course: Patient with a large pseudoaneurysm of the right common femoral artery measuring about 6 cm in diameter Proximal and distally patient is intact pulse and this is a pulsatile mass as above noted The the structural origin is clear however the inciting event is not because patient denies having any needle sticks catheterizations or anything in the right groin lately Nonetheless patient will need to be admitted and have this repaired by open approach Patient is on Eliquis so we should wait at least 48 hours to have this worked out of the system before proceeding with surgery Full consult has been dictated Thanks Mery Objective: Vital Signs Date Time Temp Pulse Resp B/P Pulse Ox O2 Delivery O2 Flow Rate FiO2 04/07/17 17:20 85 18 106/71 04/07/17 16:06 96 04/07/17 13:39 97.7 72 16 103/51 96 Room Air Labs: Laboratory Tests Test 04/07/17 15:05 White Blood Count 5.5 TH/MM3 (4.0-11.0) Red Blood Count 4.13 MIL/MM3 (4.00-5.30) Hemoglobin 11.6 GM/DL (11.6-15.3) Hematocrit 35.4 % (35.0-46.0) Mean Corpuscular Volume 85.8 FL (80.0-100.0) Mean Corpuscular Hemoglobin 28.1 PG (27.0-34.0) Mean Corpuscular Hemoglobin 32.7 % Concent (32.0-36.0) Red Cell Distribution Width 14.4 % (11.6-17.2) Platelet Count 226 TH/MM3 (150-450) Mean Platelet Volume 8.2 FL (7.0-11.0) Neutrophils (%) (Auto) 57.1 % (16.0-70.0) Lymphocytes (%) (Auto) 30.3 % (9.0-44.0) Monocytes (%) (Auto) 10.0 % (0.0-8.0) Eosinophils (%) (Auto) 1.8 % (0.0-4.0) Basophils (%) (Auto) 0.8 % (0.0-2.0) Neutrophils # (Auto) 3.2 TH/MM3 (1.8-7.7) Lymphocytes # (Auto) 1.7 TH/MM3 (1.0-4.8) Monocytes # (Auto) 0.6 TH/MM3 (0-0.9) Eosinophils # (Auto) 0.1 TH/MM3 (0-0.4) Basophils # (Auto) 0.0 TH/MM3 (0-0.2) CBC Comment DIFF FINAL Differential Comment Prothrombin Time 11.4 SEC (9.8-11.6) Prothromb Time International 1.0 RATIO Ratio Activated Partial 29.9 SEC Thromboplast Time (24.3-30.1) Sodium Level 137 MEQ/L (136-145) Potassium Level 3.9 MEQ/L (3.5-5.1) Chloride Level 93 MEQ/L (98-107) Carbon Dioxide Level 40.4 MEQ/L (21.0-32.0) Anion Gap 4 MEQ/L (5-15) Blood Urea Nitrogen 19 MG/DL (7-18) Creatinine 0.39 MG/DL (0.50-1.00) Estimat Glomerular Filtration 157 ML/MIN Rate (>89) Random Glucose 106 MG/DL (74-106) Calcium Level 9.0 MG/DL (8.5-10.1) Result Diagram: 04/07/17 1505 04/07/17 1505 Lj Chowdary MD Apr 07, 2017 18:54
--- NOTE | 2017-04-07 19:05 | MB ---
cc: MD [facility] DATE OF CONSULTATION: 04/07/2017. REASON FOR CONSULTATION: Pseudoaneurysm of the right groin. HISTORY OF PRESENT ILLNESS: This is an 81-year-old female who is currently a resident of a prison. She had a recent left femur fracture and is post surgery and is currently in rehab. Today she was noted to have a large lesion in her right groin. The patient and her sister were in the room and they stated that this has been growing maybe a week or two. The question arises about the nature of the swelling and the mass and possible surgical remedy. PAST MEDICAL HISTORY: The past medical history is that of: 1. Arthritis. 2. Hyperlipidemia. 3. Atrial fibrillation. 4. Hypothyroidism. PAST SURGICAL HISTORY: 1. Left hip replacement. 2. L4-5-S1 fusion by Dr. Silver. MEDICATIONS: Medications can be found on the record and include Eliquis, obviously because of atrial fibrillation. SOCIAL HISTORY: The patient quit smoking about twenty years ago. She is now in rehab because of her hip fracture. PHYSICAL EXAMINATION: GENERAL: The physical examination reveals a very thin 81-year-old female in no acute distress. HEAD, EYES, EARS, NOSE, THROAT: Normocephalic. No trauma to the head. Pupils equal and reactive. Extraocular muscles intact. NECK: The neck is supple. Bilateral carotid pulses. No bruits. CHEST: Clear, decreased over both sides. The patient has moderate COPD. HEART: Irregular rhythm. The patient is in controlled atrial fibrillation of about 80. ABDOMEN: Abdomen soft. Active bowel sounds. No rebound. No guarding. No masses. EXTREMITIES: The patient has bilateral palpable femoral pulses on the left side, palpable popliteal, dorsalis pedis pulse and posterior tibial pulse. On the right side, the patient also has popliteal, dorsalis pedis and posterior tibial pulses; however, what is remarkable is about a 6 to 7 cm lump in her right groin pulsatile consistent with a pseudoaneurysm of the right external iliac / common femoral artery considering the location is just at the junction by the inguinal ligament, so I guess more in the common femoral. Capillary refill is normal. NEUROLOGIC: Neurologically grossly the patient is intact although she is a little slow in response. IMPRESSION AND RECOMMENDATIONS: This is an 81-year-old female with a large pseudoaneurysm of the right common femoral artery just below the inguinal ligament. This is not something that can be fixed by an endovascular approach and the patient will need open surgery resection of this and repair of the vessel probably with a Hemashield patch. At this point, the patient needs to be admitted, taken off Eliquis and will attend her in the next 48 hours. Considering the patient is on Eliquis, I will give her a day or two to be off it and will then proceed with surgery, probably on Monday or Monday. Thank you very much for the referral. CRITICAL CARE TIME: Forty (40) minutes. Lj HU/JUSTIN /6:51 PM /6:57 PM
--- NOTE | 2017-04-07 19:26 | HHI.HP ---
HPI Service [facility] Primary Care Physician Rosalinda Do MD Admission Diagnosis R Inguinal Pseudoaneurysm Diagnoses: (1) Pseudoaneurysm Diagnosis: Principal (2) Dehydration Diagnosis: Principal (3) A-fib Diagnosis: Principal (4) HTN (hypertension) Diagnosis: Principal (5) Anxiety Diagnosis: Principal (6) Depression Diagnosis: Principal Travel History International Travel<30 Days: No Contact w/Intl Traveler <30 Da: No History of Present Illness This is an 81-year-old female with a PMH of Anxiety, Depression, A. fib on Eliquis, HTN and Hyperlipidemia who was sent to the ER from SNF secondary to possible pseudoaneurysm. Results of outpatient ultrasound on 04/02/17 showing "probable hematoma surrounding an artery, possibly representing thrombosed aneurysm", results in chart. Pt denies any complaints at this time. On arrival , BP 103/51, HR 72, O2 sat 96% on RA, Afebrile. Chemistry at baseline. BUN elevated at 19. Creatinine 0.39. CBC unremarkable. INR 1.0. CTA Pelvis showing 6 cm pseudoaneurysm involving right groin felt to arise from proximal superficial femoral artery, recommendation for Doppler study of right groin to confirm flow. Dr. White consulted by ER physician, plan is to hold Eliquis w/ surgical intervention likely Monday or Monday. Review of Systems Except as stated in HPI: all other systems reviewed are Neg ROS: 14 point review of systems otherwise negative. Past Family Social History Past Medical History PMH: Anxiety, Depression, A. fib on Eliquis, HTN and Hyperlipidemia Past Surgical History PAST SURGICAL HISTORY: Right Foot Surgery, Cataract Surgery, Left Hip Replacement Allergies: Coded Allergies: No Known Allergies (Verified , 11/11/14) Family History PAST FAMILY HISTORY: Reviewed. No h/o DM or CAD Social History PAST SOCIAL HISTORY: Occasional alcohol. Negative for tobacco or drugs. Physical Exam Vital Signs Vital Signs Date Time Temp Pulse Resp B/P Pulse Ox O2 Delivery O2 Flow Rate FiO2 04/07/17 17:20 85 18 106/71 04/07/17 16:06 96 04/07/17 13:39 97.7 72 16 103/51 96 Room Air Physical Exam PE: GENERAL: Elderly female in no acute distress. HEENT: PERRLA, EOMI. No scleral icterus or conjunctival pallor. No lid lag or facial droop. CARDIOVASCULAR: Regular rate and rhythm. No obvious murmurs to auscultation. No chest tenderness to palpation. RESPIRATORY: No obvious rhonchi or wheezing. Clear to auscultation. Breath sounds equal bilaterally. GASTROINTESTINAL: Abdomen soft, non-tender, nondistended. BS normal. MUSCULOSKELETAL: Extremities without clubbing, cyanosis, or edema. No obvious deformities. +right groin mass, nontender NEUROLOGICAL: Awake, alert and oriented x4. No focal neurologic deficits. Moving both upper and lower extremities spontaneously. Laboratory Laboratory Tests Test 04/07/17 15:05 White Blood Count 5.5 Red Blood Count 4.13 Hemoglobin 11.6 Hematocrit 35.4 Mean Corpuscular Volume 85.8 Mean Corpuscular Hemoglobin 28.1 Mean Corpuscular Hemoglobin 32.7 Concent Red Cell Distribution Width 14.4 Platelet Count 226 Mean Platelet Volume 8.2 Neutrophils (%) (Auto) 57.1 Lymphocytes (%) (Auto) 30.3 Monocytes (%) (Auto) 10.0 Eosinophils (%) (Auto) 1.8 Basophils (%) (Auto) 0.8 Neutrophils # (Auto) 3.2 Lymphocytes # (Auto) 1.7 Monocytes # (Auto) 0.6 Eosinophils # (Auto) 0.1 Basophils # (Auto) 0.0 CBC Comment DIFF FINAL Differential Comment Prothrombin Time 11.4 Prothromb Time International 1.0 Ratio Activated Partial 29.9 Thromboplast Time Sodium Level 137 Potassium Level 3.9 Chloride Level 93 Carbon Dioxide Level 40.4 Anion Gap 4 Blood Urea Nitrogen 19 Creatinine 0.39 Estimat Glomerular Filtration 157 Rate Random Glucose 106 Calcium Level 9.0 Result Diagram: 04/07/17 1505 04/07/17 1505 Assessment and Plan Problem List: (1) Pseudoaneurysm ICD Code: I72.9 Status: Acute (2) Dehydration ICD Code: E86.0 Status: Acute (3) A-fib ICD Code: I48.91 Status: Acute (4) HTN (hypertension) ICD Code: I10 Status: Acute (5) Depression ICD Code: F32.9 Status: Acute (6) Anxiety ICD Code: F41.9 Status: Acute Assessment and Plan A/P: 1. Pseudoaneurysm: Right Groin. Outpatient Ultrasound 04/02/17 from SNF w/ probable right groin thrombosed aneurysm. CTA Pelvis w/ 6cm pseudoaneurysm, images reviewed by me. Dr. Chowdary consulted by ER physician, plan is to hold Eliquis and plan for surgical intervention Monday or Monday. Hold ASA and Eliquis. Analgesics as needed. 2. Dehydration: BUN 19, increased from 15 on 02/23/17. IVF for hydration. Check U/a. 3. A-fib: Chronic. Resume home medications, however hold Eliquis and ASA in light of pseudoaneurysm. 4. HTN: Controlled. Monitor BP. Resume home medications. 5. Depression: Resume Lexapro. 6. Anxiety: Resume home Xanax 7. DVT Prophylaxis: Pharmacologic contraindication in light of surgical intervention. 8. Social work for d/c planning as needed 9. Case discussed w/ ER physician at length. Physician Certification 2 Midnight Certification Type: Admission for Inpatient Services Order for Inpatient Services The services are ordered in accordance with Medicare regulations or non- Medicare payer requirements, as applicable. In the case of services not specified as inpatient-only, they are appropriately provided as inpatient services in accordance with the 2-midnight benchmark. Estimated LOS (days): 2 days is the estimated time the patient will need to remain in the hospital, assuming treatment plan goals are met and no additional complications. Post-Hospital Plan: Not yet determined Kathy Goodwin MD Apr 07, 2017 19:26
[2017-04-07] MEDS ORDERED: BISACODYL 10 MG SUPP RECTAL PRN (19:30)
[2017-04-07] MEDS ORDERED: SODIUM CHLOR 0.9% 1000 ML INJ 1,000 ML IV ONE (19:30)
[2017-04-07] MEDS ORDERED: SODIUM CHLORIDE 0.9% FLUSH 10 ML FLUSH IV FLUSH PRN (19:30)
[2017-04-07] MEDS ORDERED: MAGNESIUM HYDROXIDE SUSP 30 ML CUP PO PRN (19:30)
[2017-04-07] MEDS ORDERED: ONDANSETRON HCL 4 MG/2 ML VIAL IVP PRN (19:30)
[2017-04-07] MEDS ORDERED: MORPHINE SULFATE 4 MG/ML INJ IV PRN (19:30)
[2017-04-07] MEDS ORDERED: SENNOSIDES 8.6 MG TAB PO PRN (19:30)
[2017-04-07] MEDS ORDERED: ACETAMINOPHEN 325 MG TAB PO PRN (19:30)
[2017-04-07] MEDS ORDERED: LACTULOSE SYRUP 20 GM/30 ML CUP PO PRN (19:30)
[2017-04-07 19:52] VITALS: BP 124/60; PULSE 61; RESP 18; O2SAT 100
[2017-04-07] MEDS ORDERED: PILL SPLITTER OTHER PRN (20:15)
[2017-04-07] MEDS: DOCUSATE SODIUM 50 MG/SENNA 8.6 MG TAB PO SCH (21:00)
[2017-04-07] MEDS: SODIUM CHLORIDE 0.9% FLUSH 10 ML FLUSH IV FLUSH SCH (21:32)
[2017-04-07] MEDS: PRAVASTATIN SOD 20 MG TAB PO SCH (21:32)
[2017-04-07 22:00] VITALS: BP_SYST 103; BP_SYST 142; BP_DIAS 56; BP_DIAS 66; PULSE 64; PULSE 80; RESP 16; TEMP 97; TEMP 97.9; O2SAT 97
[2017-04-07] MEDS: ALPRAZolam 0.5 MG TAB PO SCH (22:39)
[2017-04-07] MEDS: MELATONIN 5 MG TAB PO SCH (22:39)
[2017-04-08] VITALS (7 sets, daily range): BP systolic 95–123; BP diastolic 47–60; PULSE 60–77; RESP 18–20; TEMP 95.7–98.4; O2SAT 94–97
[2017-04-08] MEDS: LEVOTHYROXINE SODIUM 25 MCG TAB PO SCH (05:53)
[2017-04-08 08:52] LABS: AUTOMATED NEUTROPHIL # 2.8 TH/MM3 (1.8-7.7); BASOPHIL % 0.7 % (0.0-2.0); EOSINOPHIL # 0.1 TH/MM3 (0-0.4); HEMATOCRIT 33.5 % (35.0-46.0); HEMO FLAGS DIFF FINAL; LYMPH % 30.9 % (9.0-44.0); LYMPHOCYTE # 1.6 TH/MM3 (1.0-4.8); MEAN CELL VOLUME 86.6 FL (80.0-100.0); MEAN CORPUSCULAR HEMOGLOBIN 27.6 PG (27.0-34.0); MEAN CORPUSCULAR HGB CONC 31.9 % (32.0-36.0); NEUT % 54.4 % (16.0-70.0); PLATELET COUNT 199 TH/MM3 (150-450); RED BLOOD COUNT 3.87 MIL/MM3 (4.00-5.30); RED CELL DISTRIBUTION WIDTH 14.1 % (11.6-17.2); WHITE BLOOD COUNT 5.1 TH/MM3 (4.0-11.0)
[2017-04-08] MEDS: ALPRAZolam 0.5 MG TAB PO SCH ×2 (09:00→21:29)
[2017-04-08] MEDS: BUMETANIDE 1 MG TAB PO SCH (09:00)
[2017-04-08] MEDS: METOPROLOL SUCCINATE 25 MG EXTENDED RELEASE TAB PO SCH (09:00)
[2017-04-08] MEDS: ESCITALOPRAM OXALATE 10 MG TAB PO SCH (09:00)
[2017-04-08] MEDS: DOCUSATE SODIUM 50 MG/SENNA 8.6 MG TAB PO SCH ×2 (09:00→21:30)
[2017-04-08 09:18] LABS: ANION GAP 3 MEQ/L (5-15); AST (GOT) 9 U/L (15-37); BICARBONATE 39.4 MEQ/L (21.0-32.0); BLOOD UREA NITROGEN 14 MG/DL (7-18); CHLORIDE 97 MEQ/L (98-107); GLOMERULAR FILTRATION RATE 275 ML/MIN (>89); SODIUM (NA) 139 MEQ/L (136-145)
[2017-04-08 09:24] LABS: ALKALINE PHOSPHATASE 116 U/L (45-117); ALT (GPT) 12 U/L (10-53); TOTAL BILIRUBIN ADULT 0.6 MG/DL (0.2-1.0)
--- NOTE | 2017-04-08 09:35 | HHI.PR ---
Subjective Remarks Patient sitting in wheelchair, appearing comfortable. She reports no complaints at this time. Neo held for surgical procedure in 1-2 days. No headache, dizziness, AMS, cp, palpitations, sob, abd pain. Objective Vitals Vital Signs Date Time Temp Pulse Resp B/P Pulse Ox O2 Delivery O2 Flow Rate FiO2 04/08/17 09:16 95.9 75 18 104/52 96 04/08/17 04:00 95.7 65 20 98/47 94 04/07/17 22:00 97.0 64 16 142/66 97 04/07/17 19:52 61 18 124/60 100 Room Air 04/07/17 17:20 85 18 106/71 04/07/17 16:06 96 04/07/17 13:39 97.7 72 16 103/51 96 Room Air I/O 04/07/17 04/07/17 04/07/17 04/08/17 04/08/17 04/08/17 07:00 15:00 23:00 07:00 15:00 23:00 Intake Total 240 ml Balance 240 ml Intake Oral 240 ml # Voids 1 # Bowel Movements 0 Result Diagram: 04/08/17 0700 04/08/17 0700 Objective Remarks GENERAL: Pleasant elderly female sitting in wheelchair. Appears comfortable. Alert and oriented 3. SKIN: Warm and dry. HEAD: Normocephalic. EYES: No scleral icterus. No injection or drainage. NECK: No JVD, trachea in midline. CARDIOVASCULAR: Irregular rhythm, rate controlled. RESPIRATORY: Breath sounds equal bilaterally. No accessory muscle use. GASTROINTESTINAL: Abdomen soft, non-tender, nondistended. MUSCULOSKELETAL: No cyanosis, or edema. No LE edema or erythema. BACK: Nontender without obvious deformity. No CVA tenderness. Urinary Catheter: No Vascular Central Line Catheter: No A/P Problem List: (1) Pseudoaneurysm ICD Code: I72.9 Status: Acute (2) Dehydration ICD Code: E86.0 Status: Resolved (3) A-fib ICD Code: I48.91 Status: Chronic (4) HTN (hypertension) ICD Code: I10 Status: Chronic (5) Depression ICD Code: F32.9 Status: Chronic (6) Anxiety ICD Code: F41.9 Status: Chronic (7) Hypothyroidism ICD Code: E03.9 Status: Chronic (8) Anxiety ICD Code: F41.9 Status: Chronic Assessment and Plan Patient is a 81 yo F, found to have 6 cm pseudoaneurysm on US in SNF, admitted for surgical repair. Pseudoaneurysm: Right Groin. Outpatient Ultrasound 04/02/17 from [facility] w/ probable right groin thrombosed aneurysm. CTA Pelvis w/ 6cm pseudoaneurysm. Dr. Chowdary consulted by ER physician, plan is to hold Eliquis and plan for surgical intervention tomorrow. -Hold ASA and Eliquis. -Analgesics as needed. Dehydration: BUN 19, increased from 15 on 02/23/17. IVF for hydration. A-fib: Chronic -Continue Pravastatin -Continue Bumex, hold parameters -Continue metoprolol, hold parameters -hold Eliquis and ASA in light of pseudoaneurysm. HTN: Controlled. Monitor BP. Hypothyroidism Continue levothyroxine Depression -Resume Lexapro. Anxiety -Resume home Xanax 0.5 mg bid Melatonin hs Regular diet HLIV DVT Prophylaxis: Pharmacologic contraindication in light of surgical intervention. Discharge Planning pending surgical clearance, patient to have open vascular intervention on 04/09/17 Ana Cristina Hollis MD Apr 08, 2017 09:35
[2017-04-08] MEDS: ACYCLOVIR 200 MG CAP PO SCH (09:53)
[2017-04-08] MEDS: MAGNESIUM OXIDE 400 MG TAB PO SCH (09:55)
[2017-04-08] MEDS: PANTOPRAZOLE SOD 20 MG DELAYED RELEASE TAB PO SCH (09:56)
--- NOTE | 2017-04-08 11:43 | PD.CAR.PN ---
CVT Progress Note Subjective/Hospital Course: Patient with a large pseudoaneurysm of the right common femoral artery measuring about 6 cm in diameter Proximal and distally patient is intact pulse and this is a pulsatile mass as above noted The the structural origin is clear however the inciting event is not because patient denies having any needle sticks catheterizations or anything in the right groin lately Nonetheless patient will need to be admitted and have this repaired by open approach Patient is on Eliquis so we should wait at least 48 hours to have this worked out of the system before proceeding with surgery Full consult has been dictated Thanks J 04/08/17 Patient doing well Off factor X a inhibitors Patient has a large pseudoaneurysm of the right external iliac /common femoral artery and will be taken to the operating room tomorrow for resection and reconstruction of the same Objective: Vital Signs Date Time Temp Pulse Resp B/P Pulse Ox O2 Delivery O2 Flow Rate FiO2 04/08/17 09:16 95.9 75 18 104/52 96 04/08/17 04:00 95.7 65 20 98/47 94 04/07/17 22:00 97.0 64 16 142/66 97 04/07/17 19:52 61 18 124/60 100 Room Air 04/07/17 17:20 85 18 106/71 04/07/17 16:06 96 04/07/17 13:39 97.7 72 16 103/51 96 Room Air Labs: Laboratory Tests Test 04/08/17 07:00 White Blood Count 5.1 TH/MM3 (4.0-11.0) Red Blood Count 3.87 MIL/MM3 (4.00-5.30) Hemoglobin 10.7 GM/DL (11.6-15.3) Hematocrit 33.5 % (35.0-46.0) Mean Corpuscular Volume 86.6 FL (80.0-100.0) Mean Corpuscular Hemoglobin 27.6 PG (27.0-34.0) Mean Corpuscular Hemoglobin 31.9 % Concent (32.0-36.0) Red Cell Distribution Width 14.1 % (11.6-17.2) Platelet Count 199 TH/MM3 (150-450) Mean Platelet Volume 8.2 FL (7.0-11.0) Neutrophils (%) (Auto) 54.4 % (16.0-70.0) Lymphocytes (%) (Auto) 30.9 % (9.0-44.0) Monocytes (%) (Auto) 12.0 % (0.0-8.0) Eosinophils (%) (Auto) 2.0 % (0.0-4.0) Basophils (%) (Auto) 0.7 % (0.0-2.0) Neutrophils # (Auto) 2.8 TH/MM3 (1.8-7.7) Lymphocytes # (Auto) 1.6 TH/MM3 (1.0-4.8) Monocytes # (Auto) 0.6 TH/MM3 (0-0.9) Eosinophils # (Auto) 0.1 TH/MM3 (0-0.4) Basophils # (Auto) 0.0 TH/MM3 (0-0.2) CBC Comment DIFF FINAL Differential Comment Sodium Level 139 MEQ/L (136-145) Potassium Level 4.0 MEQ/L (3.5-5.1) Chloride Level 97 MEQ/L (98-107) Carbon Dioxide Level 39.4 MEQ/L (21.0-32.0) Anion Gap 3 MEQ/L (5-15) Blood Urea Nitrogen 14 MG/DL (7-18) Creatinine 0.24 MG/DL (0.50-1.00) Estimat Glomerular Filtration 275 ML/MIN Rate (>89) Random Glucose 86 MG/DL (74-106) Calcium Level 8.5 MG/DL (8.5-10.1) Total Bilirubin 0.6 MG/DL (0.2-1.0) Aspartate Amino Transf 9 U/L (15-37) (AST/SGOT) Alanine Aminotransferase 12 U/L (10-53) (ALT/SGPT) Alkaline Phosphatase 116 U/L (45-117) Total Protein 5.7 GM/DL (6.4-8.2) Albumin 2.4 GM/DL (3.4-5.0) Result Diagram: 04/08/17 0700 04/08/17 0700 Lj Chowdary MD Apr 08, 2017 11:43
[2017-04-08] MEDS ORDERED: ceFAZolin 2 GM PREMIX 50 ML IV SCH (11:45)
[2017-04-08] MEDS ORDERED: INSULIN HUMAN REGULAR 1,000 UNITS/10 ML VIAL SQ PRN (13:15)
[2017-04-08] MEDS ORDERED: SODIUM CHLORID 0.9% 500 ML IV PRN (13:15)
[2017-04-08] MEDS ORDERED: CHLORHEXIDINE GLUCONATE 2 % 1 PACK (2 CLOTHS) TOPICAL PRN (13:15)
[2017-04-08] MEDS ORDERED: POVIDONE IODINE 5% (ANTISEPSIS KIT) 4 APPLICATIONS EACH NARE PRN (13:15)
[2017-04-08] MEDS ORDERED: METOPROLOL TARTRATE 25 MG TAB PO PRN (13:15)
[2017-04-08] MEDS ORDERED: LACTATED RINGER'S 1000 ML IV PRN (13:15)
[2017-04-08] MEDS ORDERED: DO NOT ADM ANY ANTICOAGULANT DRUGS PRN (13:15)
--- NOTE | 2017-04-08 15:39 | EKG ---
Date Performed: 04/08/2017 Time Performed: 12:43:59 PTAGE: 81 years EKG: ATRIAL FIBRILLATION ABNORMAL RHYTHM ECG Since PREVIOUS TRACING 02/22/2017, no significant change. PREVIOUS TRACIN02/22/2017 07.21 DOCTOR: Dariusz Saenz Interpretating Date/Time 04/08/2017 15:38:38
[2017-04-08] MEDS: SODIUM CHLORIDE 0.9% FLUSH 10 ML FLUSH IV FLUSH SCH (21:00)
[2017-04-08] MEDS: MELATONIN 5 MG TAB PO SCH (21:29)
[2017-04-08] MEDS: PRAVASTATIN SOD 20 MG TAB PO SCH (21:30)
[2017-04-09] VITALS (8 sets, daily range): BP systolic 111–136; BP diastolic 56–65; PULSE 58–98; RESP 18–20; TEMP 95.5–98.2; O2SAT 92–100
[2017-04-09] MEDS: LEVOTHYROXINE SODIUM 25 MCG TAB PO SCH (05:44)
[2017-04-09] MEDS: PANTOPRAZOLE SOD 20 MG DELAYED RELEASE TAB PO SCH (08:00)
[2017-04-09 08:01] LABS: AUTOMATED NEUTROPHIL # 2.9 TH/MM3 (1.8-7.7); BASOPHIL % 0.3 % (0.0-2.0); EOSINOPHIL # 0.1 TH/MM3 (0-0.4); EOSINOPHIL % 2.5 % (0.0-4.0); HEMATOCRIT 34.4 % (35.0-46.0); HEMO FLAGS DIFF FINAL; LYMPH % 33.3 % (9.0-44.0); LYMPHOCYTE # 1.8 TH/MM3 (1.0-4.8); MEAN CELL VOLUME 86.3 FL (80.0-100.0); MEAN CORPUSCULAR HEMOGLOBIN 27.6 PG (27.0-34.0); MONO % 11.2 % (0.0-8.0); NEUT % 52.7 % (16.0-70.0); PLATELET COUNT 192 TH/MM3 (150-450); RED BLOOD COUNT 3.99 MIL/MM3 (4.00-5.30); RED CELL DISTRIBUTION WIDTH 14.4 % (11.6-17.2); WHITE BLOOD COUNT 5.5 TH/MM3 (4.0-11.0)
[2017-04-09 08:19] LABS: BICARBONATE 38.1 MEQ/L (21.0-32.0); POTASSIUM 4.1 MEQ/L (3.5-5.1)
[2017-04-09] MEDS: ESCITALOPRAM OXALATE 10 MG TAB PO SCH (08:20)
[2017-04-09] MEDS: ALPRAZolam 0.5 MG TAB PO SCH ×2 (08:20→21:00)
[2017-04-09] MEDS: METOPROLOL SUCCINATE 25 MG EXTENDED RELEASE TAB PO SCH (08:20)
[2017-04-09] MEDS: SODIUM CHLORIDE 0.9% FLUSH 10 ML FLUSH IV FLUSH SCH ×2 (08:22→22:34)
[2017-04-09] MEDS: BUMETANIDE 1 MG TAB PO SCH (08:24)
[2017-04-09] MEDS: DOCUSATE SODIUM 50 MG/SENNA 8.6 MG TAB PO SCH ×2 (08:24→21:00)
[2017-04-09] MEDS: ACYCLOVIR 200 MG CAP PO SCH (08:25)
[2017-04-09] MEDS ORDERED: HEPARIN SODIUM - IV 10,000 UNITS/10 ML VIAL ONE (10:13)
[2017-04-09] MEDS ORDERED: PROTAMINE SULFATE 50 MG/5 ML VIAL ONE (10:13)
[2017-04-09] MEDS ORDERED: HEPARIN SODIUM - SQ 10,000 UNITS/ML VIAL ONE (10:13)
[2017-04-09] MEDS: MAGNESIUM OXIDE 400 MG TAB PO SCH (11:00)
[2017-04-09] MEDS ORDERED: ACETAMINOPHEN 1000 MG/100 ML VIAL IV ONE (11:16)
[2017-04-09] MEDS ORDERED: NALOXONE HCL 2 MG/2 ML VIAL IV ONE (12:00)
[2017-04-09] MEDS ORDERED: NEOSTIGMINE 3 MG/3 ML SYR IV ONE (12:00)
[2017-04-09] MEDS ORDERED: ONDANSETRON HCL 4 MG/2 ML VIAL IV PUSH ONE (12:00)
[2017-04-09] MEDS ORDERED: PROPOFOL 200 MG/20 ML AMP IV ONE (12:00)
[2017-04-09] MEDS ORDERED: LACTATED RINGER'S 1000 ML INJ 1,000 ML IV ONE (12:00)
[2017-04-09] MEDS ORDERED: PHENYLEPH/NS 1000 MCG/10 ML SYR IV ONE (12:00)
[2017-04-09] MEDS ORDERED: fentaNYL CITRATE 250 MCG/5 ML AMP ONE (13:13)
[2017-04-09] MEDS ORDERED: DO NOT ADM ANY ANTICOAGULANT DRUGS PRN (13:15)
[2017-04-09] MEDS ORDERED: *morphine SULFATE 8 MG/ML PERIprocedure ONLY ONE (13:17)
--- NOTE | 2017-04-09 15:51 | HHI.PR ---
Subjective Remarks f/u for pseudoaneurysm patient seen post op. She was still sedative but could answer questions. Her sister is at the bedside and she stated she is POA. patient was asking for water but had no other complaints. Per sister she is doing well. Objective Vitals Vital Signs Date Time Temp Pulse Resp B/P Pulse Ox O2 Delivery O2 Flow Rate FiO2 04/09/17 14:15 67 14 115/56 95 Nasal Cannula 3 04/09/17 14:00 68 14 115/58 96 Nasal Cannula 3 04/09/17 13:45 66 22 115/59 97 Nasal Cannula 2 04/09/17 13:30 96.5 67 16 121/59 99 Nasal Cannula 2 04/09/17 13:15 69 15 128/59 99 Nasal Cannula 3 04/09/17 13:00 73 14 148/62 99 Nasal Cannula 3 04/09/17 12:45 66 14 134/59 100 Simple Mask 6 04/09/17 12:42 96.3 65 12 122/58 100 Simple Mask 6 04/09/17 07:59 96.5 98 19 136/61 95 04/09/17 07:00 75 04/09/17 04:45 98.2 88 19 115/65 94 04/09/17 00:30 97.9 90 19 111/56 93 04/08/17 20:45 98.4 73 18 123/60 94 04/08/17 19:00 71 04/08/17 16:02 97.8 60 18 109/57 97 I/O 04/08/17 04/08/17 04/08/17 04/09/17 04/09/17 04/09/17 07:00 15:00 23:00 07:00 15:00 23:00 Intake Total 240 ml 800 ml 150 ml 1400 ml Output Total 340 ml Balance 240 ml 800 ml 150 ml 1060 ml Intake Oral 240 ml 800 ml 150 ml IV Total 100 ml Other 1300 ml Output Urine Total 190 ml Drainage Total 50 ml Estimated Blood Loss 100 ml # Voids 1 3 4 1 # Bowel Movements 0 1 0 Result Diagram: 04/09/1752 04/09/1752 Objective Remarks GENERAL: in NAD but sleepy SKIN: right groin area wrap in bandage. will not remove since patient just got back from OR. CARDIOVASCULAR: Regular rate and rhythm without murmurs, gallops, or rubs. RESPIRATORY: Breath sounds equal bilaterally. No accessory muscle use. GASTROINTESTINAL: Abdomen soft, non-tender, nondistended. MUSCULOSKELETAL: No cyanosis, or edema. Medications and IVs Current Medications Iohexol 74 ml 74 ml STK-MED ONCE IV Last administered on 04/07/17 16:43; Start 04/07/17 at 16:43; Stop 04/07/17 at 16:44; Status DC Sodium Chloride (NS 1000 ml Inj) 1,000 ml @ 100 mls/hr Q10H ONCE IV Last administered on 04/07/17 21:32; Start 04/07/17 at 19:30; Stop 04/08/17 at 05:29; Status DC Sodium Chloride (NS Flush) 2 ml UNSCH PRN IV FLUSH FLUSH AFTER USING IV ACCESS ; Start 04/07/17 at 19:30 Sodium Chloride (NS Flush) 2 ml BID IV FLUSH Last administered on 04/09/17 08: 22; Start 04/07/17 at 21:00 Ondansetron HCl (Zofran Inj) 4 mg Q6H PRN IVP NAUSEA OR VOMITING; Start at 19:30 Acetaminophen (Tylenol) 650 mg Q6H PRN PO FEVER/PAIN SCALE 1 TO 2; Start at 19:30 Acetaminophen/ Hydrocodone Bitart ([place] 5-325 Mg) 1 tab Q4H PRN PO PAIN SCALE 3 TO 5; Start 04/07/17 at 19:30 Morphine Sulfate (Morphine Inj) 2 mg Q3H PRN IV Pain 6-10; Start 04/07/17 at 19: 30 Senna/Docusate Sodium (Moraima-Colace) 1 tab BID PO Last administered on 04/08/17 21:30; Start 04/07/17 at 21:00 Magnesium Hydroxide (Milk Of Magnesia Liq) 30 ml Q12H PRN PO MILD - MODERATE CONSTIPATION; Start 04/07/17 at 19:30 Sennosides (Senokot) 17.2 mg Q12H PRN PO MODERATE - SEVERE CONSTIPATION; Start 04/07/17 at 19:30 Bisacodyl (Dulcolax Supp) 10 mg DAILY PRN RECTAL SEVERE CONSITIPATION; Start at 19:30 Lactulose (Lactulose Liq) 30 ml DAILY PRN PO SEVERE CONSITIPATION; Start at 19:30 Acyclovir (Zovirax) 400 mg DAILY PO Last administered on 04/08/17 09:53; Start 04/08/17 at 09:00 Alprazolam (Xanax) 0.5 mg BID PO Last administered on 04/09/17 08:20; Start 04/07/17 at 21:00 Bumetanide (Bumetanide) 1 mg DAILY PO ; Start 04/08/17 at 09:00 Escitalopram Oxalate (Lexapro) 5 mg DAILY PO Last administered on 04/09/17 08: 20; Start 04/08/17 at 09:00 Levothyroxine Sodium (Synthroid) 25 mcg DAILY@06 PO Last administered on 05:44; Start 04/08/17 at 06:00 Pravastatin Sodium (Pravachol) 20 mg HS PO Last administered on 04/08/17 21:30 ; Start 04/07/17 at 21:00 Metoprolol Succinate (Toprol Xl) 25 mg DAILY PO Last administered on 04/09/17 08:20; Start 04/08/17 at 09:00 Magnesium Oxide (Mag-Ox) 400 mg DAILY@11 PO Last administered on 04/08/17 09:55 ; Start 04/08/17 at 11:00 Melatonin (Melatonin) 5 mg HS PO Last administered on 04/08/17 21:29; Start 04/07/17 at 21:00 Pantoprazole Sodium (Protonix) 20 mg DAILYAC PO Last administered on 04/08/17 09:56; Start 04/08/17 at 08:00 Miscellaneous 1 ea 1 ea UNSCH PRN OTHER SEE LABEL COMMENTS; Start 04/07/17 at 20 :15 Cefazolin Sodium/ Dextrose (Ancef 2 Gm Premix) 50 ml @ 100 mls/hr SECOND CUTTER IV Last administered on 04/09/17 10:40; Start 04/08/17 at 11:45; Stop 04/11/17 at 11: 44 Miscellaneous Information ALL NURSING DEPARTME... UNSCH PRN .XX SEE LABEL COMMENTS; Start 04/08/17 at 13:15; Stop 04/09/17 at 13:14; Status Cancel Lactated Ringer's 1,000 ml @ 30 mls/hr Q24H PRN IV SEE LABEL COMMENTS; Start at 13:15; Stop 04/11/17 at 13:14 Sodium Chloride (NS 500 ml Inj) 500 ml @ 30 mls/hr [id number] PRN IV SEE LABEL COMMENTS; Start 04/08/17 at 13:15; Stop 04/11/17 at 13:14 Metoprolol Tartrate (Lopressor) 25 mg SECOND CUTTER PRN PO SEE LABEL COMMENTS; Start 04/08/17 at 13:15; Stop 04/11/17 at 13:14 Povidone Iodine (Betadine 5% Antisepsis Kit) 1 applic SECOND CUTTER PRN EACH NARE SEE LABEL COMMENTS; Start 04/08/17 at 13:15; Stop 04/11/17 at 13:14 Chlorhexidine Gluconate (Chlorhexidine 2% Cloth) 3 pack SECOND CUTTER PRN TOPICAL SEE LABEL COMMENTS; Start 04/08/17 at 13:15; Stop 04/11/17 at 13:14 Insulin Human Regular (NovoLIN R INJ) See Protocol Table ... SECOND CUTTER PRN SQ SEE PROTOCOL TABLE; Start 04/08/17 at 13:15; Stop 04/11/17 at 13:14 Heparin Sodium (Porcine) (Heparin Inj) 10,000 units STK-MED ONCE .ROUTE Last administered on 04/09/17t 11:21; Start 04/09/17 at 10:13; Stop 04/09/17 at 10:14; Status DC Heparin Sodium (Porcine) (Heparin Inj) 10,000 units STK-MED ONCE .ROUTE ; Start 04/09/17 at 10:13; Stop 04/09/17 at 10:14; Status DC Protamine Sulfate (Protamine Sulfate Inj) 50 mg STK-MED ONCE .ROUTE ; Start 04/09 at 10:13; Stop 04/09/17 at 10:14; Status DC Acetaminophen (Ofirmev Inj) 1,000 mg STK-MED ONCE IV ; Start 04/09/17 at 11:16; Stop 04/09/17 at 11:17; Status DC Miscellaneous Information ALL NURSING DEPARTME... UNSCH PRN .XX SEE LABEL COMMENTS; Start 04/09/17 at 13:15; Stop 04/10/17 at 13:14 Fentanyl Citrate (fentaNYL INJ) 250 mcg STK-MED ONCE .ROUTE ; Start 04/09/17 at 13:13; Stop 04/09/17 at 13:14; Status DC Morphine Sulfate 8 mg 8 mg STK-MED ONCE .ROUTE Last administered on 04/09/17t 13 :18; Start 04/09/17 at 13:17; Stop 04/09/17 at 13:18; Status DC Cefazolin Sodium/ Sodium Chloride (Ancef Inj/NS Inj) 100 ml @ 200 mls/hr Q8H IV ; Start 04/09/17 at 14:00; Stop 04/10/17 at 06:00 Enoxaparin Sodium (Lovenox Inj) 40 mg Q24H SQ ; Start 04/09/17 at 14:00 A/P Problem List: (1) Pseudoaneurysm ICD Code: I72.9 Status: Acute (2) Dehydration ICD Code: E86.0 Status: Resolved (3) A-fib ICD Code: I48.91 Status: Chronic (4) HTN (hypertension) ICD Code: I10 Status: Chronic (5) Depression ICD Code: F32.9 Status: Chronic (6) Anxiety ICD Code: F41.9 Status: Chronic (7) Hypothyroidism ICD Code: E03.9 Status: Chronic (8) Anxiety ICD Code: F41.9 Status: Chronic Assessment and Plan Patient is a 81 yo F, found to have 6 cm pseudoaneurysm on US in SNF, admitted for surgical repair. Pseudoaneurysm: Right Groin. Outpatient Ultrasound 04/02/17 from SNF w/ probable right groin thrombosed aneurysm. CTA Pelvis w/ 6cm pseudoaneurysm. -patient had open repair today and seen post op. -Eliquis held. Per sister patient was never on ASA. -Analgesics as needed. Dehydration: BUN 19, increased from 15 on 02/23/17. IVF for hydration. A-fib: Chronic -Continue Pravastatin -Continue Bumex, hold parameters -Continue metoprolol, hold parameters -held Eliquis. HTN: Controlled. Monitor BP. Hypothyroidism Continue levothyroxine Depression -continue Lexapro. Anxiety -continue Xanax 0.5 mg bid Melatonin hs Regular diet HLIV DVT Prophylaxis: Pharmacologic contraindication in light of surgical intervention. Discharge Planning will need to monitor pseudoaneurysm. Tanesha Hough MD Apr 09, 2017 15:51
[2017-04-09] MEDS: ENOXAPARIN SODIUM 40 MG/0.4 ML SYRINGE SQ SCH (15:53)
[2017-04-09] MEDS: PRAVASTATIN SOD 20 MG TAB PO SCH (21:00)
[2017-04-09] MEDS: MELATONIN 5 MG TAB PO SCH (21:00)
--- NOTE | 2017-04-09 22:19 | MP ---
cc: LJ MCGUIRE MD DATE OF SURGERY 04/09/2017 PREOPERATIVE DIAGNOSIS Pseudoaneurysm of the right common femoral artery. POSTOPERATIVE DIAGNOSIS 1. Pseudoaneurysm of the right common femoral artery. 2. Tear of the right common femoral / external iliac artery. OPERATIVE PROCEDURE Retroperitoneal exploration, controlled external femoral artery and resection of pseudoaneurysm of the common femoral artery, repair of the external iliac and common femoral artery by primary closure and drainage. SURGEON Dr. Mcguire. ANESTHESIA General. ESTIMATED BLOOD LOSS 50 mL. PROCEDURE DETAILS The patient prepped and draped in the usual fashion. Incision made in the right groin in an oblique fashion, deepened down and then the retractors positioned in such a way as to incise lateral to the rectus muscle and then dissect retroperitoneally exposing the external iliac artery. A vessel loop was placed readily around the external iliac artery, above the inguinal ligament about 2 inches above the inguinal ligament. The incision now distal to the pseudoaneurysm. The superficial femoral arteries was isolated and a vessel loop placed around it. At this point the aneurysm is attended. This one measures about 7 cm in diameter. The tissue above it is dissected with sharp and blunt dissection with cautery and Metzenbaum scissors and finally this hematoma exposed. The patient is now given 5000 units of heparin. then a profunda clamp is applied to superficial femoral artery and then Satinsky to the external iliac artery in the retroperitoneal space. This controlled the proximal access. The hematoma is now opened and a large amount of semi organized abdomen organism material was removed and sent to pathology. The vessel is now explored. The patient indeed has a tear that this sort at the level of the inguinal ligament in external iliac / common femoral artery measuring about 8 mm in length. This is a pretty straight jagged tear. There is lot of inflammatory response around this area clearly from the pseudoaneurysm but probably something else was going on here. It looked like an iatrogenic tear by all means and not a spontaneous event. The patient has been in the hospital several times and I bet you that somebody was trying to put either an arterial line or venous line in the area and injured the artery. It is almost impossible for this to happen spontaneously. Either way the area is irrigated with copious amounts of saline. The edges are freshened up with Stout scissors and then vessel is closed with several interrupted 5-0 Prolene. The area is now irrigated once more and then blood flow reestablished in the usual order and fashion. The has a bounding pulse in the groin and the foot is readily warm. The clamp time was about probably 30 minutes if not less. RICHA drain is laid in the area then incisions closed in layers using 0 Vicryl and skin was closed 4-0 Monocryl. Benzoin, Steri-Strips applied. The patient taken out of the operating room in stable condition with excellent distal pulses. Lj GONZÁLES /1:47 PM /10:09 PM JESSICA
[2017-04-10] VITALS (7 sets, daily range): BP systolic 93–109; BP diastolic 55–59; PULSE 76–105; RESP 16–20; TEMP 96–98.2; O2SAT 93–100
[2017-04-10] MEDS: LEVOTHYROXINE SODIUM 25 MCG TAB PO SCH (05:12)
[2017-04-10 07:37] LABS: AUTOMATED NEUTROPHIL # 7.7 TH/MM3 (1.8-7.7); BASOPHIL % 0.4 % (0.0-2.0); HEMATOCRIT 34.7 % (35.0-46.0); HEMO FLAGS DIFF FINAL; LYMPH % 11.6 % (9.0-44.0); LYMPHOCYTE # 1.1 TH/MM3 (1.0-4.8); MEAN CELL VOLUME 88.9 FL (80.0-100.0); MEAN CORPUSCULAR HEMOGLOBIN 27.6 PG (27.0-34.0); MEAN CORPUSCULAR HGB CONC 31.1 % (32.0-36.0); PLATELET COUNT 226 TH/MM3 (150-450); WHITE BLOOD COUNT 9.7 TH/MM3 (4.0-11.0)
[2017-04-10 07:59] LABS: BICARBONATE 36.3 MEQ/L (21.0-32.0)
[2017-04-10] MEDS: METOPROLOL SUCCINATE 25 MG EXTENDED RELEASE TAB PO SCH (08:46)
[2017-04-10] MEDS: PANTOPRAZOLE SOD 20 MG DELAYED RELEASE TAB PO SCH (08:47)
[2017-04-10] MEDS: DOCUSATE SODIUM 50 MG/SENNA 8.6 MG TAB PO SCH ×2 (08:47→20:57)
[2017-04-10] MEDS: ESCITALOPRAM OXALATE 10 MG TAB PO SCH (08:47)
[2017-04-10] MEDS: ALPRAZolam 0.5 MG TAB PO SCH ×2 (08:47→20:55)
[2017-04-10] MEDS: BUMETANIDE 1 MG TAB PO SCH (08:48)
[2017-04-10] MEDS: ACYCLOVIR 200 MG CAP PO SCH (08:49)
[2017-04-10] MEDS: SODIUM CHLORIDE 0.9% FLUSH 10 ML FLUSH IV FLUSH SCH ×2 (09:00→21:00)
[2017-04-10] MEDS: MAGNESIUM OXIDE 400 MG TAB PO SCH (11:28)
[2017-04-10] MEDS: ACETAMINOPHEN/HYDROcodone 325 MG/5 MG TAB PO PRN ×2 (11:28→23:52)
--- NOTE | 2017-04-10 12:22 | HHI.PR ---
Subjective Remarks Follow-up for pseudoaneurysm repair. Patient initially had no complaints. When I asked her pain was controlled she said was a control. She is getting a pain medication at that time. I told nurse to check patient in one 2 abscesses pains control. Patient sisters at the bedside. She stated that patient did not have a Brambila prior to hospitalization. Patient remains afebrile. No signs of bleeding. Patient nurses at the bedside during the interview and examination. Objective Vitals Vital Signs Date Time Temp Pulse Resp B/P Pulse Ox O2 Delivery O2 Flow Rate FiO2 04/10/17 08:00 98.2 92 16 109/56 99 04/10/17 04:00 96.5 90 18 93/55 93 04/10/17 00:00 97.3 105 18 108/56 96 04/09/17 22:00 76 04/09/17 21:00 76 04/09/17 19:52 95.5 98 20 131/65 92 04/09/17 16:15 96.5 58 18 124/59 100 04/09/17 14:15 67 14 115/56 95 Nasal Cannula 3 04/09/17 14:00 68 14 115/58 96 Nasal Cannula 3 04/09/17 13:45 66 22 115/59 97 Nasal Cannula 2 04/09/17 13:30 96.5 67 16 121/59 99 Nasal Cannula 2 04/09/17 13:15 69 15 128/59 99 Nasal Cannula 3 04/09/17 13:00 73 14 148/62 99 Nasal Cannula 3 04/09/17 12:45 66 14 134/59 100 Simple Mask 6 04/09/17 12:42 96.3 65 12 122/58 100 Simple Mask 6 I/O 04/09/17 04/09/17 04/09/17 04/10/17 04/10/17 04/10/17 07:00 15:00 23:00 07:00 15:00 23:00 Intake Total 150 ml 1400 ml 100 ml 450 ml Output Total 340 ml 154 ml 405 ml Balance 150 ml 1060 ml -54 ml 45 ml Intake Oral 150 ml 0 ml 450 ml IV Total 100 ml 100 ml Other 1300 ml Output Urine Total 190 ml 150 ml 400 ml Drainage Total 50 ml 4 ml 5 ml Estimated Blood Loss 100 ml # Voids 4 1 # Bowel Movements 0 0 0 Result Diagram: 04/10/17 0653 04/10/17 0653 Objective Remarks GENERAL: in NAD and awake SKIN: right groin area wrap in bandage. will not remove since patient just got back from OR. CARDIOVASCULAR: Regular rate and rhythm without murmurs, gallops, or rubs. RESPIRATORY: Breath sounds equal bilaterally. No accessory muscle use. GASTROINTESTINAL: Abdomen soft, non-tender, nondistended. MUSCULOSKELETAL: No cyanosis, or edema. Medications and IVs Current Medications Iohexol 74 ml 74 ml STK-MED ONCE IV Last administered on 04/07/17 16:43; Start 04/07/17 at 16:43; Stop 04/07/17 at 16:44; Status DC Sodium Chloride (NS 1000 ml Inj) 1,000 ml @ 100 mls/hr Q10H ONCE IV Last administered on 04/07/17 21:32; Start 04/07/17 at 19:30; Stop 04/08/17 at 05:29; Status DC Sodium Chloride (NS Flush) 2 ml UNSCH PRN IV FLUSH FLUSH AFTER USING IV ACCESS ; Start 04/07/17 at 19:30 Sodium Chloride (NS Flush) 2 ml BID IV FLUSH Last administered on 04/10/17 09: 00; Start 04/07/17 at 21:00 Ondansetron HCl (Zofran Inj) 4 mg Q6H PRN IVP NAUSEA OR VOMITING; Start at 19:30 Acetaminophen (Tylenol) 650 mg Q6H PRN PO FEVER/PAIN SCALE 1 TO 2; Start at 19:30 Acetaminophen/ Hydrocodone Bitart ([place] 5-325 Mg) 1 tab Q4H PRN PO PAIN SCALE 3 TO 5 Last administered on 04/10/17 11:28; Start 04/07/17 at 19:30 Morphine Sulfate (Morphine Inj) 2 mg Q3H PRN IV Pain 6-10; Start 04/07/17 at 19: 30 Senna/Docusate Sodium (Moraima-Colace) 1 tab BID PO Last administered on 04/10/17 08:47; Start 04/07/17 at 21:00 Magnesium Hydroxide (Milk Of Magnesia Liq) 30 ml Q12H PRN PO MILD - MODERATE CONSTIPATION; Start 04/07/17 at 19:30 Sennosides (Senokot) 17.2 mg Q12H PRN PO MODERATE - SEVERE CONSTIPATION; Start 04/07/17 at 19:30 Bisacodyl (Dulcolax Supp) 10 mg DAILY PRN RECTAL SEVERE CONSITIPATION; Start at 19:30 Lactulose (Lactulose Liq) 30 ml DAILY PRN PO SEVERE CONSITIPATION; Start at 19:30 Acyclovir (Zovirax) 400 mg DAILY PO Last administered on 04/10/17 08:49; Start 04/08/17 at 09:00 Alprazolam (Xanax) 0.5 mg BID PO Last administered on 04/10/17 08:47; Start 04/07/17 at 21:00 Bumetanide (Bumetanide) 1 mg DAILY PO Last administered on 04/10/17 08:48; Start 04/08/17 at 09:00 Escitalopram Oxalate (Lexapro) 5 mg DAILY PO Last administered on 04/10/17 08: 47; Start 04/08/17 at 09:00 Levothyroxine Sodium (Synthroid) 25 mcg DAILY@06 PO Last administered on 05:12; Start 04/08/17 at 06:00 Pravastatin Sodium (Pravachol) 20 mg HS PO Last administered on 04/08/17 21:30 ; Start 04/07/17 at 21:00 Metoprolol Succinate (Toprol Xl) 25 mg DAILY PO Last administered on 04/10/17 08:46; Start 04/08/17 at 09:00 Magnesium Oxide (Mag-Ox) 400 mg DAILY@11 PO Last administered on 04/10/17 11:28 ; Start 04/08/17 at 11:00 Melatonin (Melatonin) 5 mg HS PO Last administered on 04/08/17 21:29; Start 04/07/17 at 21:00 Pantoprazole Sodium (Protonix) 20 mg DAILYAC PO Last administered on 04/10/17 08:47; Start 04/08/17 at 08:00 Miscellaneous 1 ea 1 ea UNSCH PRN OTHER SEE LABEL COMMENTS; Start 04/07/17 at 20 :15 Cefazolin Sodium/ Dextrose (Ancef 2 Gm Premix) 50 ml @ 100 mls/hr AUDIOVISUAL TECHNICIAN IV Last administered on 04/09/17t 10:40; Start 04/08/17 at 11:45; Stop 04/11/17 at 11: 44 Miscellaneous Information ALL NURSING DEPARTME... UNSCH PRN .XX SEE LABEL COMMENTS; Start 04/08/17 at 13:15; Stop 04/09/17 at 13:14; Status Cancel Lactated Ringer's 1,000 ml @ 30 mls/hr Q24H PRN IV SEE LABEL COMMENTS; Start at 13:15; Stop 04/11/17 at 13:14 Sodium Chloride (NS 500 ml Inj) 500 ml @ 30 mls/hr [id number] PRN IV SEE LABEL COMMENTS; Start 04/08/17 at 13:15; Stop 04/11/17 at 13:14 Metoprolol Tartrate (Lopressor) 25 mg AUDIOVISUAL TECHNICIAN PRN PO SEE LABEL COMMENTS; Start 04/08/17 at 13:15; Stop 04/11/17 at 13:14 Povidone Iodine (Betadine 5% Antisepsis Kit) 1 applic AUDIOVISUAL TECHNICIAN PRN EACH NARE SEE LABEL COMMENTS; Start 04/08/17 at 13:15; Stop 04/11/17 at 13:14 Chlorhexidine Gluconate (Chlorhexidine 2% Cloth) 3 pack AUDIOVISUAL TECHNICIAN PRN TOPICAL SEE LABEL COMMENTS; Start 04/08/17 at 13:15; Stop 04/11/17 at 13:14 Insulin Human Regular (NovoLIN R INJ) See Protocol Table ... AUDIOVISUAL TECHNICIAN PRN SQ SEE PROTOCOL TABLE; Start 04/08/17 at 13:15; Stop 04/11/17 at 13:14 Heparin Sodium (Porcine) (Heparin Inj) 10,000 units STK-MED ONCE .ROUTE Last administered on 04/09/17 11:21; Start 04/09/17 at 10:13; Stop 04/09/17 at 10:14; Status DC Heparin Sodium (Porcine) (Heparin Inj) 10,000 units STK-MED ONCE .ROUTE ; Start 04/09/17 at 10:13; Stop 04/09/17 at 10:14; Status DC Protamine Sulfate (Protamine Sulfate Inj) 50 mg STK-MED ONCE .ROUTE ; Start 04/09 at 10:13; Stop 04/09/17 at 10:14; Status DC Acetaminophen (Ofirmev Inj) 1,000 mg STK-MED ONCE IV ; Start 04/09/17 at 11:16; Stop 04/09/17 at 11:17; Status DC Miscellaneous Information ALL NURSING DEPARTME... UNSCH PRN .XX SEE LABEL COMMENTS; Start 04/09/17 at 13:15; Stop 04/10/17 at 13:14 Fentanyl Citrate (fentaNYL INJ) 250 mcg STK-MED ONCE .ROUTE ; Start 04/09/17 at 13:13; Stop 04/09/17 at 13:14; Status DC Morphine Sulfate 8 mg 8 mg STK-MED ONCE .ROUTE Last administered on 04/09/17 13 :18; Start 04/09/17 at 13:17; Stop 04/09/17 at 13:18; Status DC Cefazolin Sodium/ Sodium Chloride (Ancef Inj/NS Inj) 100 ml @ 200 mls/hr Q8H IV Last administered on 04/10/17 05:12; Start 04/09/17 at 14:00; Stop 04/10/17 at 06:00; Status DC Enoxaparin Sodium (Lovenox Inj) 40 mg Q24H SQ Last administered on 04/09/17 15: 53; Start 04/09/17 at 14:00 A/P Problem List: (1) Pseudoaneurysm ICD Code: I72.9 Status: Acute (2) Dehydration ICD Code: E86.0 Status: Resolved (3) A-fib ICD Code: I48.91 Status: Chronic (4) HTN (hypertension) ICD Code: I10 Status: Chronic (5) Depression ICD Code: F32.9 Status: Chronic (6) Anxiety ICD Code: F41.9 Status: Chronic (7) Hypothyroidism ICD Code: E03.9 Status: Chronic (8) Anxiety ICD Code: F41.9 Status: Chronic Assessment and Plan Patient is a 81 yo F, found to have 6 cm pseudoaneurysm on US in SNF, admitted for surgical repair. Pseudoaneurysm of the right common femoral artery/Tear of the right common femoral / external iliac artery. 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 CTA Pelvis w/ 6cm pseudoaneurysm. -s/p Retroperitoneal exploration, controlled external femoral artery and resection of pseudoaneurysm of the common femoral artery, repair of the external iliac and common femoral artery by primary closure and drainage. -Eliquis held. Per sister patient was never on ASA. -Analgesics as needed. Dehydration: BUN 19, increased from 15 on 02/23/17. -IVF for hydration. A-fib: Chronic -Continue Pravastatin -Continue Bumex, hold parameters -Continue metoprolol, hold parameters -held Eliquis. Pending restart date per vascular surgeon. HTN: Controlled. Monitor BP. Hypothyroidism Continue levothyroxine Depression -continue Lexapro. Anxiety -continue Xanax 0.5 mg bid Melatonin hs Regular diet HLIV DVT Prophylaxis: Pharmacologic contraindication in light of surgical intervention. Deconditioned/left leg injury -Consult PT. Once evaluated by PT will remove Brambila. Discharge Planning will need to monitor pseudoaneurysm. Tanesha Hough MD Apr 10, 2017 12:22
[2017-04-10] MEDS: ENOXAPARIN SODIUM 40 MG/0.4 ML SYRINGE SQ SCH (15:10)
--- NOTE | 2017-04-10 15:48 | PD.CAR.PN ---
CVT Progress Note Subjective/Hospital Course: Patient with a large pseudoaneurysm of the right common femoral artery measuring about 6 cm in diameter Proximal and distally patient is intact pulse and this is a pulsatile mass as above noted The the structural origin is clear however the inciting event is not because patient denies having any needle sticks catheterizations or anything in the right groin lately Nonetheless patient will need to be admitted and have this repaired by open approach Patient is on Eliquis so we should wait at least 48 hours to have this worked out of the system before proceeding with surgery Full consult has been dictated Thanks J 04/08/17 Patient doing well Off factor X a inhibitors Patient has a large pseudoaneurysm of the right external iliac /common femoral artery and will be taken to the operating room tomorrow for resection and reconstruction of the same 04/10/17 Status post resection of the right external iliac/ common femoral artery pseudoaneurysm and repair of the same. Incision is clean and dry and RICHA drainage has significantly decreased only about 30 cc in last 24 hours Excellent peripheral pulses on palpation both feet are warm Plan LYN Brambila LYN CHAUDHRY Out of bed Ambulate patient Resume Eliquis Patient can be discharged from my point tomorrow morning Follow-up with me in 2-3 weeks Objective: Vital Signs Date Time Temp Pulse Resp B/P Pulse Ox O2 Delivery O2 Flow Rate FiO2 04/10/17 12:34 96.0 76 18 94/55 98 04/10/17 08:00 98.2 92 16 109/56 99 04/10/17 04:00 96.5 90 18 93/55 93 04/10/17 00:00 97.3 105 18 108/56 96 04/09/17 22:00 76 04/09/17 21:00 76 04/09/17 19:52 95.5 98 20 131/65 92 04/09/17 16:15 96.5 58 18 124/59 100 Labs: Laboratory Tests Test 04/10/17 06:53 White Blood Count 9.7 TH/MM3 (4.0-11.0) Red Blood Count 3.90 MIL/MM3 (4.00-5.30) Hemoglobin 10.8 GM/DL (11.6-15.3) Hematocrit 34.7 % (35.0-46.0) Mean Corpuscular Volume 88.9 FL (80.0-100.0) Mean Corpuscular Hemoglobin 27.6 PG (27.0-34.0) Mean Corpuscular Hemoglobin 31.1 % Concent (32.0-36.0) Red Cell Distribution Width 14.0 % (11.6-17.2) Platelet Count 226 TH/MM3 (150-450) Mean Platelet Volume 8.1 FL (7.0-11.0) Neutrophils (%) (Auto) 80.0 % (16.0-70.0) Lymphocytes (%) (Auto) 11.6 % (9.0-44.0) Monocytes (%) (Auto) 8.0 % (0.0-8.0) Eosinophils (%) (Auto) 0.0 % (0.0-4.0) Basophils (%) (Auto) 0.4 % (0.0-2.0) Neutrophils # (Auto) 7.7 TH/MM3 (1.8-7.7) Lymphocytes # (Auto) 1.1 TH/MM3 (1.0-4.8) Monocytes # (Auto) 0.8 TH/MM3 (0-0.9) Eosinophils # (Auto) 0.0 TH/MM3 (0-0.4) Basophils # (Auto) 0.0 TH/MM3 (0-0.2) CBC Comment DIFF FINAL Differential Comment Sodium Level 138 MEQ/L (136-145) Potassium Level 5.0 MEQ/L (3.5-5.1) Chloride Level 98 MEQ/L (98-107) Carbon Dioxide Level 36.3 MEQ/L (21.0-32.0) Anion Gap 4 MEQ/L (5-15) Blood Urea Nitrogen 20 MG/DL (7-18) Creatinine 0.46 MG/DL (0.50-1.00) Estimat Glomerular Filtration 130 ML/MIN Rate (>89) Random Glucose 106 MG/DL (74-106) Calcium Level 8.5 MG/DL (8.5-10.1) Result Diagram: 04/10/17 0653 04/10/17 0653 Lj Chowdary MD Apr 10, 2017 15:48
[2017-04-10] MEDS: MELATONIN 5 MG TAB PO SCH (20:55)
[2017-04-10] MEDS: PRAVASTATIN SOD 20 MG TAB PO SCH (20:55)
[2017-04-10] MEDS: APIXABAN 2.5 MG TABLET PO SCH (20:55)
[2017-04-11 04:39] VITALS: BP 109/59; PULSE 78; RESP 19; TEMP 96.6; O2SAT 100
[2017-04-11] MEDS: LEVOTHYROXINE SODIUM 25 MCG TAB PO SCH (05:35)
[2017-04-11 08:00] VITALS: BP 111/63; PULSE 90; RESP 18; TEMP 96; O2SAT 100
[2017-04-11] MEDS: DOCUSATE SODIUM 50 MG/SENNA 8.6 MG TAB PO SCH (08:05)
[2017-04-11] MEDS: BUMETANIDE 1 MG TAB PO SCH (08:05)
[2017-04-11] MEDS: ESCITALOPRAM OXALATE 10 MG TAB PO SCH (08:05)
[2017-04-11] MEDS: ALPRAZolam 0.5 MG TAB PO SCH (08:05)
[2017-04-11] MEDS: ACYCLOVIR 200 MG CAP PO SCH (08:06)
[2017-04-11] MEDS: PANTOPRAZOLE SOD 20 MG DELAYED RELEASE TAB PO SCH (08:06)
[2017-04-11] MEDS: APIXABAN 2.5 MG TABLET PO SCH (08:06)
[2017-04-11] MEDS: METOPROLOL SUCCINATE 25 MG EXTENDED RELEASE TAB PO SCH (08:06)
[2017-04-11] MEDS: ACETAMINOPHEN/HYDROcodone 325 MG/5 MG TAB PO PRN (08:07)
[2017-04-11] MEDS: SODIUM CHLORIDE 0.9% FLUSH 10 ML FLUSH IV FLUSH SCH (08:14)
[2017-04-11 09:19] LABS: HEMATOCRIT 32.7 % (35.0-46.0); MEAN CELL VOLUME 88.5 FL (80.0-100.0); MEAN CORPUSCULAR HEMOGLOBIN 27.6 PG (27.0-34.0); MEAN CORPUSCULAR HGB CONC 31.2 % (32.0-36.0); PLATELET COUNT 199 TH/MM3 (150-450); RED CELL DISTRIBUTION WIDTH 13.6 % (11.6-17.2); REVIEW FLAG FINAL; WHITE BLOOD COUNT 9.8 TH/MM3 (4.0-11.0)
[2017-04-11] MEDS ORDERED: HYDR-3516 PO (09:27)
[2017-04-11] MEDS ORDERED: SENN1TAB PO (09:27)
[2017-04-11] MEDS ORDERED: APIX2.5T PO (09:27)
[2017-04-11] MEDS ORDERED: ALPR0.5T3 PO (09:27)
--- NOTE | 2017-04-11 09:28 | HHI.DS ---
Discharge Summary Admission Date Apr 07, 2017 at 18:39 Discharge Date: Apr 11, 2017 Admitting Diagnosis R Inguinal Pseudoaneurysm (1) Pseudoaneurysm ICD Code: I72.9 Diagnosis: Principal (2) Dehydration ICD Code: E86.0 Diagnosis: Principal (3) A-fib ICD Code: I48.91 Diagnosis: Secondary (4) HTN (hypertension) ICD Code: I10 Diagnosis: Secondary (5) Depression ICD Code: F32.9 Diagnosis: Secondary (6) Anxiety ICD Code: F41.9 Diagnosis: Secondary (7) Hypothyroidism ICD Code: E03.9 Diagnosis: Secondary Procedures See hospital course. Brief History - From Admission This is an 81-year-old female with a PMH of Anxiety, Depression, A. fib on Eliquis, HTN and Hyperlipidemia who was sent to the ER from SNF secondary to possible pseudoaneurysm. Results of outpatient ultrasound on 04/02/17 showing "probable hematoma surrounding an artery, possibly representing thrombosed aneurysm", results in chart. Pt denies any complaints at this time. On arrival , BP 103/51, HR 72, O2 sat 96% on RA, Afebrile. Chemistry at baseline. BUN elevated at 19. Creatinine 0.39. CBC unremarkable. INR 1.0. CTA Pelvis showing 6 cm pseudoaneurysm involving right groin felt to arise from proximal superficial femoral artery, recommendation for Doppler study of right groin to confirm flow. Dr. White consulted by ER physician, plan is to hold Eliquis w/ surgical intervention likely Monday or Monday. CBC/BMP: 04/11/17 0811 04/10/17 0653 Significant Findings Laboratory Tests Test 04/09/17 04/10/17 04/11/17 06:52 06:53 08:11 Red Blood Count 3.99 MIL/MM3 3.90 MIL/MM3 3.70 MIL/MM3 (4.00-5.30) (4.00-5.30) (4.00-5.30) Hemoglobin 11.0 GM/DL 10.8 GM/DL 10.2 GM/DL (11.6-15.3) (11.6-15.3) (11.6-15.3) Hematocrit 34.4 % 34.7 % 32.7 % (35.0-46.0) (35.0-46.0) (35.0-46.0) Monocytes (%) (Auto) 11.2 % (0.0-8.0) Carbon Dioxide Level 38.1 MEQ/L 36.3 MEQ/L (21.0-32.0) (21.0-32.0) Anion Gap 3 MEQ/L (5-15) 4 MEQ/L (5-15) Creatinine 0.29 MG/DL 0.46 MG/DL (0.50-1.00) (0.50-1.00) Calcium Level 8.4 MG/DL (8.5-10.1) Mean Corpuscular Hemoglobin 31.1 % 31.2 % Concent (32.0-36.0) (32.0-36.0) Neutrophils (%) (Auto) 80.0 % (16.0-70.0) Blood Urea Nitrogen 20 MG/DL (7-18) Imaging Last Impressions Pelvis CTA 04/07/17 0000 Signed Impressions: Service Date/Time: Friday, April 07, 2017 16:43 - CONCLUSION: 1. 6 cm pseudoaneurysm involving the right groin felt to arise from the proximal superficial femoral artery. I would suggest a Doppler study of the right groin to confirm flow within the pseudoaneurysm as well as to confirm the vessel that this arises from. The left groin which is the side of the trauma is unremarkable. Nacho Hanley Jr., MD PE at Discharge GENERAL: in NAD and awake SKIN: right groin area wrap in bandage. will not remove since patient just got back from OR. CARDIOVASCULAR: Regular rate and rhythm without murmurs, gallops, or rubs. RESPIRATORY: Breath sounds equal bilaterally. No accessory muscle use. GASTROINTESTINAL: Abdomen soft, non-tender, nondistended. MUSCULOSKELETAL: No cyanosis, or edema. Pt update on day of discharge Follow-up for pseudoaneurysm repair Patient was sedated when I examined patient. She was arousable. She had no complaints. I spoke to patient's nurse and she said that she has been doing well. She stated that before I examined the patient she did give her a dose of norco due to right groin pain. Patient remains afebrile. There has been no issues since she was last seen. Per nurse patient has been controlled with current pain regimen and she stated that she does not sedate the patient a lot and that patient is mostly awake. Hospital Course Patient is a 81 yo F, found to have 6 cm pseudoaneurysm on US in SNF, admitted for surgical repair. Pseudoaneurysm of the right common femoral artery/Tear of the right common femoral / external iliac artery. 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 CTA Pelvis w/ 6cm pseudoaneurysm. -Initially eloquence was held and she had a Retroperitoneal exploration, controlled external femoral artery and resection of pseudoaneurysm of the common femoral artery, repair of the external iliac and common femoral artery by primary closure and drainage on 04/09/2017. Since the wound looked great she had the drainage removed on 04/10/17. -Hemoglobin was stable and Eliquis was resumed by vascular surgeon at a lower dose at 2.5 mg by mouth twice a day. On patient's medication list it stated that she was on aspirin. Per patient sister who is the POA patient was never on aspirin. That was discontinued off her med list. Dehydration: BUN 19, increased from 15 on 02/23/17. -Improved with IV fluids. A-fib: Chronic -Continue Pravastatin -Continue Bumex, hold parameters -Continue metoprolol, hold parameters HTN: Controlled. Monitor BP. Hypothyroidism Continue levothyroxine Depression -continue Lexapro. Anxiety -continue Xanax 0.5 mg bid Melatonin hs Pt Condition on Discharge: Stable Discharge Disposition: Discharge to SNF Discharge Time: <= 30 minutes Discharge Instructions DIET: Follow Instructions for: Heart Healthy Diet Activities you can perform: Regular-No Restrictions Follow up Referrals: SNF/[facility]/ - Next Day Vascular Surgery - 2 Weeks with Lj Chowdary MD New Medications: Apixaban (Eliquis) 2.5 Mg Tab 2.5 MG PO BID prevent clot #60 Ref 0 TAB Hydrocodone-Acetaminophen (Hydrocodone-Acetaminophen) 5-325 mg Tab 1 TAB PO Q4H PRN moderate to severe pain. #20 Ref 0 TAB Sennosides-Docusate Sodium (Senna Plus 8.6-50 mg) 1 Tab Tab 1 TAB PO BID constipation #30 Ref 0 TAB Continued Medications: Acyclovir (Zovirax) 400 Mg Tab 400 MG PO DAILY SHINGLES Ref 0 TAB Alprazolam (Alprazolam) 0.5 Mg Tab 0.5 MG PO BID Anxiety #6 Ref 0 TAB (This prescription has been renewed) Bumetanide (Bumetanide) 1 Mg Tab 1 MG PO DAILY Prevent Heart Failure #30 Ref 0 TAB Escitalopram (Escitalopram) 5 Mg Tab 5 MG PO DAILY #30 Ref 0 TAB Levothyroxine (Levothyroxine) 25 Mcg Tab 25 MCG PO DAILY Thyroid #30 Ref 0 TAB Lovastatin (Lovastatin) 20 Mg Tab 20 MG PO HS Cholesterol Management #30 Ref 0 TAB Magnesium Oxide (Magnesium Oxide) 500 Mg Tab 500 MG PO DAILY Nutritional Supplement Ref 0 TAB Melatonin (Melatonin Cr) 3 Mg Tab 3 MG PO HS Insomnia Metoprolol Succinate ER 24 HR (Metoprolol Succinate ER 24 HR) 25 Mg Tab 25 MG PO DAILY HTN #30 Ref 0 TAB Omeprazole (Omeprazole) 20 Mg Tab 20 MG PO DAILY GERD #30 Ref 0 TAB Ondansetron (Zofran) 4 Mg Tab 4 MG PO Q8HR PRN NAUSEA OR VOMITING Ref 0 TAB Potassium Chloride ER (Potassium Chloride ER) 10 Meq Cap 10 MEQ PO DAILY PRN SUPPLEMENT #30 Ref 0 CAP Discontinued Medications: Apixaban (Eliquis) 5 Mg Tab 5 MG PO BID Blood Clot Prevention #60 Ref [address] (Aspirin DR) 81 Mg Tabdr 81 MG PO DAILY ANTICOAGULANT Ref 0 TAB Tanesha Hough MD Apr 11, 2017 09:28
[2017-04-11 09:31] LABS: BICARBONATE 38.1 MEQ/L (21.0-32.0); POTASSIUM 4.8 MEQ/L (3.5-5.1)
[2017-04-11] MEDS: MAGNESIUM OXIDE 400 MG TAB PO SCH (11:41)
--- NOTE | 2017-04-11 11:58 | PD.CAR.PN ---
CVT Progress Note Subjective/Hospital Course: Patient with a large pseudoaneurysm of the right common femoral artery measuring about 6 cm in diameter Proximal and distally patient is intact pulse and this is a pulsatile mass as above noted The the structural origin is clear however the inciting event is not because patient denies having any needle sticks catheterizations or anything in the right groin lately Nonetheless patient will need to be admitted and have this repaired by open approach Patient is on Eliquis so we should wait at least 48 hours to have this worked out of the system before proceeding with surgery Full consult has been dictated Thanks J 04/08/17 Patient doing well Off factor X a inhibitors Patient has a large pseudoaneurysm of the right external iliac /common femoral artery and will be taken to the operating room tomorrow for resection and reconstruction of the same 04/10/17 Status post resection of the right external iliac/ common femoral artery pseudoaneurysm and repair of the same. Incision is clean and dry and RICHA drainage has significantly decreased only about 30 cc in last 24 hours Excellent peripheral pulses on palpation both feet are warm Plan LYN Brambila LYN CHAUDHRY Out of bed Ambulate patient Resume Eliquis Patient can be discharged from my point tomorrow morning Follow-up with me in 2-3 weeks 04/11/17 Patient seems overmedicated this morning Incision clean and dry with no surrounding erythema or drainage, dry blood on dressing Reduce pain medication and work with PT for ambulation Clear for discharge from surgical standpoint, will sign off Objective: Vital Signs Date Time Temp Pulse Resp B/P Pulse Ox O2 Delivery O2 Flow Rate FiO2 04/11/17 08:00 96.0 90 18 111/63 100 04/11/17 04:39 96.6 78 19 109/59 100 04/11/17 01:01 16 04/10/17 21:19 97.4 79 20 103/57 100 04/10/17 17:09 78 04/10/17 16:45 96.5 76 18 109/59 99 04/10/17 12:34 96.0 76 18 94/55 98 Labs: Laboratory Tests Test 04/11/17 08:11 White Blood Count 9.8 TH/MM3 (4.0-11.0) Red Blood Count 3.70 MIL/MM3 (4.00-5.30) Hemoglobin 10.2 GM/DL (11.6-15.3) Hematocrit 32.7 % (35.0-46.0) Mean Corpuscular Volume 88.5 FL (80.0-100.0) Mean Corpuscular Hemoglobin 27.6 PG (27.0-34.0) Mean Corpuscular Hemoglobin 31.2 % Concent (32.0-36.0) Red Cell Distribution Width 13.6 % (11.6-17.2) Platelet Count 199 TH/MM3 (150-450) Mean Platelet Volume 8.1 FL (7.0-11.0) Sodium Level 135 MEQ/L (136-145) Potassium Level 4.8 MEQ/L (3.5-5.1) Chloride Level 95 MEQ/L (98-107) Carbon Dioxide Level 38.1 MEQ/L (21.0-32.0) Anion Gap 2 MEQ/L (5-15) Blood Urea Nitrogen 22 MG/DL (7-18) Creatinine 0.35 MG/DL (0.50-1.00) Estimat Glomerular Filtration 178 ML/MIN Rate (>89) Random Glucose 110 MG/DL (74-106) Calcium Level 8.8 MG/DL (8.5-10.1) Result Diagram: 04/11/17 0811 04/11/17 0811 Nic Ortiz MD Apr 11, 2017 11:58
[2017-04-11 12:00] VITALS: BP 108/58; PULSE 80; RESP 18; TEMP 96.8; O2SAT 100
== END 2017-04-11 13:58 | DRG 909 ==
LOC: NEPE 13:38 → NEDA 18:39 → N05B 21:52
PROVIDERS: ADMIT Family Medicine; ATTEND Family Medicine
PROC: 04QH0ZZ Repair Right External Iliac Artery, Open Approach (ICD-10-PCS; 2017-04-09)
PROC: 0W9H0ZZ Drainage of Retroperitoneum, Open Approach (ICD-10-PCS; 2017-04-09)
PROC: 04QK0ZZ Repair Right Femoral Artery, Open Approach (ICD-10-PCS; principal; 2017-04-09 10:13)
DX: S75.021A Major laceration of femoral artery, right leg, initial encounter (principal); S85.8 Injury of other blood vessels at lower leg level; I72.4 Aneurysm of artery of lower extremity; E86.0 Dehydration; I48.2 Chronic atrial fibrillation; J44.9 Chronic obstructive pulmonary disease, unspecified; I10 Essential (primary) hypertension; F32.9 Major depressive disorder, single episode, unspecified; E03.9 Hypothyroidism, unspecified; E78.5 Hyperlipidemia, unspecified; F41.9 Anxiety disorder, unspecified; S72.92XD Unspecified fracture of left femur, subsequent encounter for closed fracture with routine healing; Z87.891 Personal history of nicotine dependence; X58.XXXA Exposure to other specified factors, initial encounter; Y92.89 Other specified places as the place of occurrence of the external cause
CPT/HCPCS: 72191; 80048; 80053; 85025; 85027; 85610; 85730; 86850; 86900; 86901; 86920; 88304; 88305; 93005; J0131; J0690; J1644; J1650; J2270; J2310; J2370; J2405; J2710; J2720; J3010; J7030; J7120; Q9967

== ENCOUNTER 2017-04-14 23:02 | Emergency (ER) | payer MEDICARE, BC ==
[~2017-04-14] VITALS: Ht 165.1 cm; Wt 49.0 kg
[~2017-04-14 23:02] MED LIST changes: +APIX2.5T PO; -APIX5TAB PO; +HYDR-3516 PO; +MAGN500T2 PO; -MAGN500T5 PO; -NORC5TAB PO; +OMEP20TA PO; +SENN1TAB PO; +ZOVI400T PO
[2017-04-14 23:05] VITALS: PULSE 97; RESP 14; TEMP 99.5; O2SAT 98
[2017-04-14 23:07] VITALS: BP 173/72; PULSE 94; RESP 22; TEMP 99.5; O2SAT 99
[2017-04-14 23:18] VITALS: BP 127/65; PULSE 67; RESP 20; TEMP 97.5; O2SAT 99
--- NOTE | 2017-04-15 00:30 | PD ---
HPI Chief Complaint: Pain: Acute or Chronic Time Seen by Provider: 23:39 Travel History International Travel<30 days: No Contact w/Intl Traveler<30days: No Traveled to known affect area: No History of Present Illness HPI 81-year-old female presents with swelling and pain to her right groin after she recently had surgery for an aneurysm repair with Dr. Mery amato. She denies any fever or other concurrent complaints. She states that she just noticed it today. Her sister who visits her every day just noticed it as well. Quality is red. Location right groin. She states it is worse when she moves. She denies other modifying factors PFSH Past Medical History Hx Anticoagulant Therapy: Yes Arthritis: Yes Anxiety: Yes Depression: Yes Heart Rhythm Problems: Yes (AFIB) Cancer: No Cardiovascular Problems: Yes (A-FIB) High Cholesterol: Yes Diabetes: No Diminished Hearing: No Endocrine: No Genitourinary: Yes Hepatitis: No Hiatal Hernia: No Hypertension: Yes Immune Disorder: No Musculoskeletal: Yes (ARTHRITIS BACK ) Neurologic: No Psychiatric: No Reproductive: No Respiratory: Yes Immunizations Current: Yes Shingles: Yes (HERPES SYNDROME) Thyroid Disease: No Menopausal: Yes Past Surgical History Abdominal Surgery: No AICD: No Body Medical Devices: HARDWARE RIGHT SHOULDER, ? RIGHT FOOT FROM BUNIONECTOMY Cardiac Surgery: No Eye Surgery: Yes (cateracts bilat) Genitourinary Surgery: No Gynecologic Surgery: No Joint Replacement: No Neurologic Surgery: Yes (LAMINECTOMY) Pacemaker: No Thoracic Surgery: No Other Surgery: Yes (RIGHT GROIN PSUDOANSURYSM) Social History Alcohol Use: Yes Tobacco Use: No Substance Use: No Allergies-Medications (Allergen,Severity, Reaction): Coded Allergies: No Known Allergies (Verified , 04/14/17) Reported Meds & Prescriptions Reported Meds & Active Scripts Active Senna Plus 8.6-50 mg (Sennosides-Docusate Sodium) 1 Tab Tab 1 Tab PO BID Hydrocodone-Acetaminophen 5-325 mg Tab 1 Tab PO Q4H PRN Eliquis (Apixaban) 2.5 Mg Tab 2.5 Mg PO BID Alprazolam 0.5 Mg Tab 0.5 Mg PO BID Bumetanide 1 Mg Tab 1 Mg PO DAILY Reported Zovirax (Acyclovir) 400 Mg Tab 400 Mg PO DAILY Omeprazole 20 Mg Tab 20 Mg PO DAILY Magnesium Oxide 500 Mg Tab 500 Mg PO DAILY Potassium Chloride ER (Potassium Chloride) 10 Meq Cap 10 Meq PO DAILY PRN Zofran (Ondansetron HCl) 4 Mg Tab 4 Mg PO Q8HR PRN Melatonin Cr (Melatonin) 3 Mg Tab 3 Mg PO HS Metoprolol Succinate ER 24 HR (Metoprolol Succinate) 25 Mg Tab 25 Mg PO DAILY Lovastatin 20 Mg Tab 20 Mg PO HS Levothyroxine (Levothyroxine Sodium) 25 Mcg Tab 25 Mcg PO DAILY Escitalopram (Escitalopram Oxalate) 5 Mg Tab 5 Mg PO DAILY Review of Systems Except as stated in HPI: all other systems reviewed are Neg Physical Exam Narrative GENERAL: Well-nourished, well-developed patient. SKIN: Steri-Strips noted with dried blood in place, small amount of erythema without warmth noted medially below Steri-Strips with small palpable mass question hematoma HEAD: Normocephalic and atraumatic. EYES: No injection or drainage. ENT: No nasal drainage noted. NECK: Supple, trachea midline. CARDIOVASCULAR: Regular rate and rhythm RESPIRATORY: No increased effort. No accessory muscle use. GASTROINTESTINAL: Abdomen soft, non-tender, nondistended. EXTREMITIES: Pain with palpation of right groin with skin changes above, no pain with specific joints , neurovascularly intact, compartments soft. NEUROLOGICAL: Awake and alert. Moves all extremities. Normal speech. Data Data Last Documented VS Vital Signs Date Time Temp Pulse Resp B/P Pulse Ox O2 Delivery O2 Flow Rate FiO2 04/15/17 01:20 70 20 125/59 98 Room Air 04/14/17 23:18 97.5 Orders Complete Blood Count With Diff (04/14/17 23:43) Basic Metabolic Panel (Bmp) (04/14/17 23:43) Act Partial Throm Time (Ptt) (04/14/17 23:43) Prothrombin Time / Inr (Pt) (04/14/17 23:43) Iv Access Insert/Monitor (04/14/17 23:43) Ecg Monitoring (04/14/17 23:43) Oximetry (04/14/17 23:43) Labs Laboratory Tests Test 04/15/17 00:10 White Blood Count 7.4 TH/MM3 Red Blood Count 3.66 MIL/MM3 Hemoglobin 10.1 GM/DL Hematocrit 31.8 % Mean Corpuscular Volume 86.9 FL Mean Corpuscular Hemoglobin 27.6 PG Mean Corpuscular Hemoglobin 31.8 % Concent Red Cell Distribution Width 14.3 % Platelet Count 269 TH/MM3 Mean Platelet Volume 8.0 FL Neutrophils (%) (Auto) 58.1 % Lymphocytes (%) (Auto) 30.5 % Monocytes (%) (Auto) 9.4 % Eosinophils (%) (Auto) 1.4 % Basophils (%) (Auto) 0.6 % Neutrophils # (Auto) 4.3 TH/MM3 Lymphocytes # (Auto) 2.2 TH/MM3 Monocytes # (Auto) 0.7 TH/MM3 Eosinophils # (Auto) 0.1 TH/MM3 Basophils # (Auto) 0.0 TH/MM3 CBC Comment DIFF FINAL Differential Comment Prothrombin Time 10.5 SEC Prothromb Time International 1.0 RATIO Ratio Activated Partial 25.2 SEC Thromboplast Time Sodium Level 138 MEQ/L Potassium Level 4.2 MEQ/L Chloride Level 95 MEQ/L Carbon Dioxide Level 40.0 MEQ/L Anion Gap 3 MEQ/L Blood Urea Nitrogen 21 MG/DL Creatinine 0.31 MG/DL Estimat Glomerular Filtration 205 ML/MIN Rate Random Glucose 108 MG/DL Calcium Level 8.8 MG/DL [facility] Medical Decision Making Medical Screen Exam Complete: Yes Emergency Medical Condition: Yes Medical Record Reviewed: Yes (past history confirm, recent hospitalization with pseudoaneurysm repair) Interpretation(s) CBC & BMP Diagram 04/15/17 00:10 Differential Diagnosis Hematoma, abscess, cellulitis Narrative Course Will check blood work and discuss with her surgeon labs wnl, Patient denies any new complaints and states that they are feeling better. Patient happy with care, all questions answered. Patient knows that follow up is incumbent on them and to return to the emergency room immediately if new or worsening symptoms develop. Patient given strict return precautions, vitals reviewed and are normal, agrees to further workup as an outpatient. Physician Communication Physician Communication Patient gave permission and dr andres reviewed. And states that healing appropriately and can discharge, he is not concerned about abscess or infection Diagnosis Primary Impression: Post-op pain Referrals: Lj Chowdary MD call for appointment Patient Instructions: General Instructions Additional Instructions: return as needed Med/Other Pt SpecificInfo: No Change to Meds Disposition: 01 DISCHARGE HOME Condition: Stable Anette Moore MD Apr 15, 2017 00:30
[2017-04-15 00:40] VITALS: RESP 18; O2SAT 97
[2017-04-15 00:41] LABS: AUTOMATED NEUTROPHIL # 4.3 TH/MM3 (1.8-7.7); BASOPHIL % 0.6 % (0.0-2.0); EOSINOPHIL # 0.1 TH/MM3 (0-0.4); EOSINOPHIL % 1.4 % (0.0-4.0); HEMATOCRIT 31.8 % (35.0-46.0); HEMO FLAGS DIFF FINAL; LYMPH % 30.5 % (9.0-44.0); LYMPHOCYTE # 2.2 TH/MM3 (1.0-4.8); MEAN CELL VOLUME 86.9 FL (80.0-100.0); MEAN CORPUSCULAR HEMOGLOBIN 27.6 PG (27.0-34.0); MEAN CORPUSCULAR HGB CONC 31.8 % (32.0-36.0); MONO % 9.4 % (0.0-8.0); NEUT % 58.1 % (16.0-70.0); PLATELET COUNT 269 TH/MM3 (150-450); RED BLOOD COUNT 3.66 MIL/MM3 (4.00-5.30); RED CELL DISTRIBUTION WIDTH 14.3 % (11.6-17.2); WHITE BLOOD COUNT 7.4 TH/MM3 (4.0-11.0)
[2017-04-15 00:54] LABS: APTT (PATIENT) 25.2 SEC (24.3-30.1); PROTHROMBIN TIME - PATIENT 10.5 SEC (9.8-11.6)
[2017-04-15 01:20] VITALS: BP 125/59; PULSE 70; RESP 20; O2SAT 98
[2017-04-15 01:23] LABS: POTASSIUM 4.2 MEQ/L (3.5-5.1)
[2017-04-15 07:11] VITALS: BP 122/60; PULSE 70; RESP 18; TEMP 97.8; O2SAT 97
== END 2017-04-15 10:43 | disposition home or self-care (01) ==
LOC: NEPC 23:02
DX: G89.18 Other acute postprocedural pain (principal); R10.31 Right lower quadrant pain
CPT/HCPCS: 80048; 85025; 85610; 85730; 99283